=== PATIENT | female | born 1950 | race Caucasian/White ===

== ENCOUNTER → 2020-01-23 15:33 | Outpatient (CLI) | payer MEDICARE, SELFPAY ==
--- NOTE | ~2020-01-23 | CT_ITS ---
EXAMINATION: CT brain wo con DATE: 01/23/2020 15:45 INDICATION: Headache. TECHNIQUE: Computed tomography (CT) of the head was performed without intravenous contrast. The mA wa s adjusted according to patient size. Iterative reconstruction technique was employed. The dose-lengt h product was 599.57 mGy-cm. COMPARISON: Head CT 11/07/2018 FINDINGS: There is no intracranial hemorrhage, acute infarction, or abnormal intracranial mass lesion . The ventricles are normal in size. There are likely changes of ocular lens replacement surgeries. T he paranasal sinuses are clear. The mastoid air cells are normal. IMPRESSION: 1. Normal brain. Reviewed, dictated and finalized at location A. IMPRESSION: 1. Normal brain.
== END ==
PROVIDERS: PCP Family Medicine; Visit Provider Family Medicine
DX: R51.9 Headache, unspecified (principal)
CPT/HCPCS: 70450

== ENCOUNTER 2021-02-25 08:52 | Outpatient (CLI) | payer MEDICARE, SELFPAY ==
--- NOTE | ~2021-02-25 | DEXA_ITS ---
Bone Density Report Name: Marietta Baum Age: 70 Sex: Female Ethnicity: White Date of : 1950 Indication: postmenopausal; height loss; hysterectomy; rheumatoid arthritis; Referring Provider: Jose G Munroe Study: Bone densitometry was performed. Exam Date: February 25, 2021 Accession number: [id number] Bone Density: Region BMD T-score Z-score Classification AP Spine (L1, L2, L4) 1.058 0.2 2.4 Normal Femoral Neck (Left) 0.656 -1.7 0.2 Osteopenia Total Hip (Left) 0.834 -0.9 0.7 Normal Total Hip Bilateral Avg 0.837 -0.8 0.8 Normal Femoral Neck (Right) 0.716 -1.2 0.7 Osteopenia Total Hip (Right) 0.839 -0.8 0.8 Normal World Health Organization criteria for BMD impression classify patients as: Normal (T-score at or above -1.0), Osteopenia (T-score between -1.0 and -2.5), or Osteoporosis (T-score at or below -2.5). 10-year Fracture Risk(1): Major Osteoporotic Fracture 14% Hip Fracture 2.8% Reported Risk Factors: [place] (), Neck BMD=0.656, BMI=28.9, rheumatoid arthritis (1) FRAX(R) Version 3.08. Fracture probability calculated for an untreated patient. Fracture probability may be lower if the patient has received treatment. Previous Exams: Region Exam Age BMD T-score BMD Change BMD Change Date g/cm2 vs Baseline vs Previous AP Spine(L1, L2, L4) 02/25/2021 70 1.058 0.2 -0.073(-6.5%)# 0.039(3.8%)* 10/22/2017 67 1.018 -0.1 -0.112(-9.9%)# 0.005(0.5%) 06/22/2015 65 1.013 -0.2 -0.118(-10.4%) -0.044(-4.2%)# 05/16/2010 59 1.057 0.2 -0.073(-6.5%)* -0.046(-4.2%)* 09/23/2007 57 1.103 0.6 -0.027(-2.4%)* -0.027(-2.4%)* 07/21/2003 53 1.131 0.9 Total Hip(Left) 02/25/2021 70 0.834 -0.9 -0.229(-21.5%) -0.115(-12.2%) 10/22/2017 67 0.949 0.1 -0.114(-10.7%) -0.003(-0.3%) 06/22/2015 65 0.952 0.1 -0.111(-10.4%) -0.077(-7.4%)# 05/16/2010 59 1.028 0.7 -0.034(-3.2%)* -0.009(-0.9%) 09/23/2007 57 1.037 0.8 -0.025(-2.4%) -0.025(-2.4%) 07/21/2003 53 1.063 1.0 Total Hip(Right) 02/25/2021 70 0.839 -0.8 -0.255(-23.3%) -0.116(-12.1%) 10/22/2017 67 0.955 0.1 -0.139(-12.7%) -0.027(-2.7%) 06/22/2015 65 0.982 0.3 -0.112(-10.3%) -0.020(-2.0%)# 05/16/2010 59 1.002 0.5 -0.093(-8.5%)* -0.027(-2.6%) 09/23/2007 57 1.029 0.7 -0.066(-6.0%)* -0.066(-6.0%)* 07/21/2003 53 1.094 1.2 *Denotes significance at 95% confidence level, LSC for AP Spine = 0.022 g/cm2, LSC for Total Hip = 0.027 g/cm2 Clinical Information Provided by Patient:
--- NOTE | ~2021-02-25 | MM_ITS ---
EXAMINATION: MM screening [facility] BI w minerva HISTORY: Screening TECHNIQUE: Craniocaudal and mediolateral oblique 3-D tomosynthesis images were obtained and synthetic 2-D images were generated. CAD analysis was submitted and interpreted. COMPARISON: Comparison to multiple prior studies sequentially, with oldest reviewed study dated 10/15. BREAST PARENCHYMAL COMPOSITION: There are scattered areas of fibroglandular density. FINDINGS: There is no evidence of suspicious mass, calcification, or architectural distortion to sugg est malignancy in either breast. There has been no suspicious interval change. IMPRESSION: 1. No mammographic evidence of malignancy. 2. Recommend routine screening mammography in one year. BI-RADS Category 1: Negative Reviewed, dictated and finalized at location A.
== END 2021-02-25 08:53 | disposition home or self-care (01) ==
PROVIDERS: PCP Family Medicine; Visit Provider Family Medicine
DX: Z12.31 Encounter for screening mammogram for malignant neoplasm of breast (principal); Z78.0 Asymptomatic menopausal state; M85.852 Other specified disorders of bone density and structure, left thigh; M85.851 Other specified disorders of bone density and structure, right thigh
CPT/HCPCS: 77063; 77067; 77080

== ENCOUNTER → 2022-03-07 13:13 | Outpatient (CLI) | payer MEDICARE, SELFPAY ==
--- NOTE | ~2022-03-07 | XR_ITS ---
EXAMINATION: XR_CERV2-3V_CR DATE: 03/07/2022 14:40 INDICATION: Polyarthralgia. Psoriatic arthritis. TECHNIQUE: 3 views of cervical spine were obtained. COMPARISON: None. FINDINGS: There is 19 degrees levoscoliosis of cervicothoracic spine. There is 2 mm anterolisthesis o f C4 on C5. Vertebral body heights are normal. There is severely decreased disc height at C3-C4, mild ly decreased disc height at C4-C5, and severely decreased disc height at C5-C6 and C6-C7. There is mu ltilevel uncovertebral joint osteoarthritis, severe bilaterally at C3-C4, C5-C6, and C6-C7 and on the right at C4-C5. There is multilevel mild to moderate facet joint osteoarthritis. There is mild centr al canal stenosis at C4-C5. No prevertebral soft tissue swelling. IMPRESSION: 1. Severe cervical spondylosis. 2. Cervicothoracic levoscoliosis. Reviewed, dictated and finalized at location A. SE MACHINE OPERATOR HELPER
--- NOTE | ~2022-03-07 | XR_ITS ---
EXAMINATION: XR hand LT 2V DATE: 03/07/2022 14:40 INDICATION: Polyarthralgia. Psoriatic arthritis. TECHNIQUE: 2 views of left hand were obtained. COMPARISON: None. FINDINGS: There is ulnar angulation of second distal phalanx with respect to the middle phalanx. Ther e is ulnar subluxation of third middle phalanx with respect to the proximal phalanx. No fracture. The re is moderate osteoarthritis of triscaphe joint and mild osteoarthritis of first carpometacarpal naida nt. There is osteoarthritis of all of the interphalangeal joints, severe at third and fourth proximal interphalangeal joints and second, third, and fifth distal interphalangeal joints. There is an old h ealed fracture of tuft of fourth distal phalanx. IMPRESSION: 1. Polyarticular osteoarthritis. No specific evidence of inflammatory arthritis. Reviewed, dictated and finalized at location A. ECTION ANALYST IMPRESSION: 1. Polyarticular osteoarthritis. No specific evidence of inflammatory arthritis .
--- NOTE | ~2022-03-07 | XR_ITS ---
EXAMINATION: XR hand RT 2V DATE: 03/07/2022 14:40 INDICATION: Polyarthralgia. Psoriatic arthritis. TECHNIQUE: 2 views of right hand were obtained. COMPARISON: None. FINDINGS: There is ulnar angulation of second distal phalanx with respect to the middle phalanx. Ther e is ulnar subluxation of fifth distal phalanx with respect to the middle phalanx. No fracture. There is mild osteoarthritis of triscaphe joint and moderate osteoarthritis of first carpometacarpal joint . There is mild osteoarthritis of second metacarpophalangeal joint. There is osteoarthritis of all of the interphalangeal joints, severe at first interphalangeal joint, third and fourth proximal interph alangeal joints, and second, third, and fifth distal interphalangeal joints. IMPRESSION: 1. Polyarticular osteoarthritis. No specific evidence of inflammatory arthropathy. Reviewed, dictated and finalized at location A. S OPERATOR PRINTING IMPRESSION: 1. Polyarticular osteoarthritis. No specific evidence of inflammatory arthropat hy.
--- NOTE | ~2022-03-07 | XR_ITS ---
XR chest 2V 03/07/2022 14:40 Indication: Polyarthralgias. Psoriatic arthritis. Procedure: 2 view chest Comparison: 12/03/2013 Findings: Heart size normal. Sequential pacemaker leads in expected position. There is subsegmental a telectasis in the left mid and lower lung. No focal pneumonia, pleural effusion or pneumothorax. No a cute osseous abnormality. Impression: 1: Subsegmental atelectasis left mid and lower lung. Reviewed, dictated and finalized at location A. ATTACHER Impression: 1: Subsegmental atelectasis left mid and lower lung.
--- NOTE | ~2022-03-07 | XR_ITS ---
EXAMINATION: XR foot RT min 3V DATE: 03/07/2022 14:39 INDICATION: Polyarthralgia. Psoriatic arthritis. TECHNIQUE: 4 views of right foot were obtained. COMPARISON: None. FINDINGS: There is mild hallux valgus. No fracture. There is mild osteoarthritis of first and third m etacarpophalangeal joints and some the interphalangeal joints and midfoot joints. There are enthesoph ytes at the posterior and plantar aspects of calcaneal tuberosity. IMPRESSION: 1. Mild polyarticular osteoarthritis. 2. Mild hallux valgus. Reviewed, dictated and finalized at location A. WINDING SUPERVISOR
--- NOTE | ~2022-03-07 | XR_ITS ---
EXAMINATION: XR foot LT min 3V DATE: 03/07/2022 14:40 INDICATION: Polyarthralgia. Psoriatic arthritis. TECHNIQUE: 4 views of left foot were obtained. COMPARISON: None. FINDINGS: There is mild hallux valgus. No fracture. There is mild osteoarthritis of first metatarsoph alangeal joint and some of the interphalangeal joints and midfoot joints. There is an enthesophyte at plantar aspect of calcaneal tuberosity. IMPRESSION: 1. Mild polyarticular osteoarthritis. 2. Mild hallux valgus. Reviewed, dictated and finalized at location A. S HANDLER
== END ==
PROVIDERS: PCP Family Medicine
DX: L40.50 Arthropathic psoriasis, unspecified (principal); Z11.1 Encounter for screening for respiratory tuberculosis; M47.892 Other spondylosis, cervical region; M19.041 Primary osteoarthritis, right hand; M19.042 Primary osteoarthritis, left hand; M19.072 Primary osteoarthritis, left ankle and foot; M20.12 Hallux valgus (acquired), left foot; M19.071 Primary osteoarthritis, right ankle and foot; M20.11 Hallux valgus (acquired), right foot; R91.8 Other nonspecific abnormal finding of lung field
CPT/HCPCS: 71046; 72040; 73120; 73630

== ENCOUNTER 2022-04-19 19:34 | Emergency (ER) | payer MEDICARE, SELFPAY ==
[2022-04-19 19:44] VITALS: BP 132/85; PULSE 93; RESP 16; TEMP 37; O2SAT 98
--- NOTE | 2022-04-19 19:53 | ED.URI ---
HPI - URI/Sore Throat General Chief Complaint: Upper Respiratory Infection Stated Complaint: cough; sore throat Time Seen by Provider: 04/19/22 19:54 Source: patient and RN notes reviewed Mode of arrival: ambulatory Limitations: no limitations History of Present Illness HPI Narrative: 71-year-old female with a history of RA presented for c/o cough and sore throat, onset today. She endorses her tested positive for RSV 3 days ago, and she is concerned she has the same. Currently denies sob, wheezing, chest pain, n/v/d/f/c. Not taking anything for symptoms. She also recently traveled via airplane. MD elicited complaint: cough Related Data Home Medications Medication Instructions Recorded Confirmed apixaban 5 mg tablet (Eliquis) 5 mg PO BID 12/12/19 03/22/22 levothyroxine 75 mcg tablet 75 mcg PO DAILY 12/12/19 03/22/22 methotrexate sodium 2.5 mg tablet 15 mg PO WEEKLY 12/12/19 03/22/22 evolocumab 140 mg/mL subcutaneous 140 mg subcut .TWICE A MONTH 12/29/20 03/22/22 pen injector (Dionne Mcguire) ezetimibe 10 mg tablet 10 mg PO DAILY 04/19/22 04/19/22 hydroxychloroquine 200 mg tablet 200 mg PO DAILY 04/19/22 04/19/22 leflunomide 20 mg tablet 20 mg PO DAILY 04/19/22 04/19/22 rosuvastatin 20 mg tablet 20 mg PO DAILY 04/19/22 04/19/22 Allergies Allergy/AdvReac Type Severity Reaction Status Date / Time adhesive Allergy Unknown Rash Verified 04/19/22 20:03 atorvastatin Allergy Unknown muscle Verified 04/19/22 20:03 cramps latex Allergy Unknown Rash Verified 04/19/22 20:03 Review of Systems Review of Systems: per HPI [facility] Past Medical History Medical History History of pulmonary embolism HLD (hyperlipidemia) Hypothyroidism IFG (impaired fasting glucose) Overweight Overweight Psoriatic arthritis Rheumatoid arthritis Surgical History Surgical History History of delivery History of cholecystectomy History of tonsillectomy Status cardiac pacemaker Family History Family History Father Heart disease Diabetes mellitus Mother Lymphoma Sibling Cerebrovascular accident Heart disease Father Family history of elevated blood lipids, Onset Age: 72 Family history of diabetes mellitus in first degree relative, Onset Age: 72 Family history of coronary artery disease Hypertension, Onset Age: 72 Patient's father is Sibling Cerebrovascular accident Family history of coronary artery disease Hypertension Family history of elevated blood lipids Family history of diabetes mellitus in first degree relative Mother Family history of lymphoma Other Family history of arthritis Family history of osteoporosis Family history of rheumatoid arthritis Social History Social History Social History: Years smoked: 2 Smoking status: Former smoker Tobacco type: cigarettes Second hand tobacco smoke exposure: No Smoking end date: 04/23/89 Alcohol intake: former Substance use: never Substance use type: does not use Gender identity (if verbalized by the patient): Female Sexual Orientation (if Verbalized by the Patient): Straight or Heterosexual Exam Narrative: GENERAL: well-appearing, nontoxic EYES: PERRLA, conjunctivae clear ENT: Mucous membranes moist. TM pearly melendez with dull light reflex bilaterally; no tragal tenderness. Oropharynx normal NECK: Supple. No lymphadenopathy CHEST: Clear to auscultation, breath sounds equal. No wheezing, rhonchi, rales, or stridor. No respiratory distress, speaks in full sentences. HEART: Regular rate and rhythm. No murmur heard. SKIN: Warm, dry, no rash. NEURO: Alert and oriented x3. PSYCH: Normal mood and affect Course Course Emergency Course: Patient is aware of diagno
== END 2022-04-19 20:10 | disposition home or self-care (01) ==
PROVIDERS: Emergency Provider Nurse Practitioner Family; PCP Family Medicine
DX: B34.9 Viral infection, unspecified (principal); Z86.711 Personal history of pulmonary embolism; Z79.01 Long term (current) use of anticoagulants; E78.5 Hyperlipidemia, unspecified; E03.9 Hypothyroidism, unspecified; M06.9 Rheumatoid arthritis, unspecified; Z87.891 Personal history of nicotine dependence
CPT/HCPCS: 87420; 99213; G0463

== ENCOUNTER → 2022-04-27 09:22 | Outpatient (CLI) | payer MEDICARE, SELFPAY ==
--- NOTE | ~2022-04-27 | CT_ITS ---
Noncontrast CT scan of the cervical spine Technique: Multiple contiguous axial [address] images of the cervical spine were obtained and rec onstructed in 2D sagittal and coronal planes on the acquisition scanner. Dose reduction technique was used on this scan by utilizing automated exposure control, adjustment of the mA and/or kV according to patient size. Clinical History: Pain, spondylosis COMPARISON: 11/27/2018 Findings: No fractures or dislocations. There is mild degenerative disc narrowing at C3-C4, C5 and C 6, and C6-C7. There is bilateral uncovertebral joint degenerative change at C3-C4, C4-C5, and severel y at C5-C6 and C6-C7. Scattered mild facet joint degenerative changes are present. Probable mild bila teral neural foraminal narrowing at C5-C6. No prevertebral soft tissue swelling. Impression: No fracture or subluxation of the cervical spine. Degenerative spondylosis, as detailed above. Reviewed, dictated and finalized at [facility]. NDER DIE MACHINE HELPER Impression: No fracture or subluxation of the cervical spine. Degenerative spondylosis, as detailed above.
== END ==
PROVIDERS: PCP Family Medicine; Visit Provider Physician Assistant
DX: M47.892 Other spondylosis, cervical region (principal)
CPT/HCPCS: 72125

== ENCOUNTER 2022-05-31 08:38 | Outpatient (CLI) | payer MEDICARE, SELFPAY ==
--- NOTE | ~2022-05-31 | DEXA_ITS ---
Bone Density Report Name: JASSON MCCONNELL Age: 72 Sex: Female Ethnicity: White Date of : 1950 Indication: postmenopausal; screening for osteoporosis; height loss; hysterectomy; rheumatoid arthritis; Referring Provider: MARILUZ FAIR Study: Bone densitometry was performed. Exam Date: May 31, 2022 Accession number: [id number] Bone Density: Region BMD T-score Z-score Classification AP Spine(L1, L2, L4) 1.021 -0.1 2.1 Normal Femoral Neck (Left) 0.739 -1.0 1.0 Normal Total Hip (Left) 0.856 -0.7 1.0 Normal Femoral Neck (Right) 0.733 -1.0 0.9 Normal Total Hip (Right) 0.867 -0.6 1.1 Normal Total Hip Mean 0.862 -0.7 1.1 Normal World Health Organization criteria for BMD impression classify patients as: Normal (T-score at or above -1.0), Osteopenia (T-score between -1.0 and -2.5), or Osteoporosis (T-score at or below -2.5). 10-year Fracture Risk: FRAX not reported because: All T-scores for Spine Total, Hip Total, Femoral Neck at or above -1.0 Previous Exams: Region Exam Age BMD T-score BMD Change BMD Change Date g/cm2 vs Baseline vs Previous AP Spine (L1-L2,L4) 05/31/2022 72 1.021 -0.1 0.007 (0.7%) -0.037 (-3.5%) 02/25/2021 70 1.058 0.2 0.044 (4.4%)* 0.039 (3.8%)* 10/22/2017 67 1.018 -0.1 0.005 (0.5%) 0.005 (0.5%) 06/22/2015 65 1.013 -0.2 Total Hip(Left) 05/31/2022 72 0.856 -0.7 -0.096 (-10.1% 0.022 (2.6%) 02/25/2021 70 0.834 -0.9 -0.118 (-12.4% -0.115 (-12.2% 10/22/2017 67 0.949 0.1 -0.003 (-0.3%) -0.003 (-0.3%) 06/22/2015 65 0.952 0.1 Total Hip(Right) 05/31/2022 72 0.867 -0.6 -0.115 (-11.7% 0.028 (3.3%)* 02/25/2021 70 0.839 -0.8 -0.143 (-14.5% -0.116 (-12.1% 10/22/2017 67 0.955 0.1 -0.027 (-2.7%) -0.027 (-2.7%) 06/22/2015 65 0.982 0.3 *Denotes significance at 95% confidence level, LSC for AP Spine = 0.022 g/cm2, LSC for Total Hip = 0.027 g/cm2 Clinical Information Provided by Patient: Has rheumatoid arthritis Has used the following medications: Vitamin D Has the following medical conditions: Hysterectomy Patient maximum height was 66 Menopause Age: 38 No regular weight bearing exercise Drinks caffeinated beverages Onset of menses at age 12 Number of children 3 Impression: The patient has normal bone mass. The BMD for the AP Spine (L1-L2,L4) decreased, changing by -3.5% since the last DXA exam. Discussion: BONE DENSITY IS ABOVE THE M
--- NOTE | ~2022-05-31 | MM_ITS ---
EXAMINATION: MM screening [facility] BI w minerva HISTORY: Screening mammogram TECHNIQUE: Craniocaudal and mediolateral oblique 3-D tomosynthesis images were obtained and synthetic 2-D images were generated. CAD analysis was submitted and interpreted. COMPARISON: 02/25/2021, 10/22/2017, bilateral screening mammogram examinations BREAST PARENCHYMAL COMPOSITION: There are scattered areas of fibroglandular density. FINDINGS: Stable occasional bilateral nodular mammographic opacities. Occasional benign scattered steven cifications. There is no evidence of suspicious mass, calcification, or architectural distortion to s uggest malignancy in either breast. There has been no suspicious interval change. IMPRESSION: 1. No mammographic evidence of malignancy. 2. Recommend routine screening mammography in one year. BI-RADS Category 2: Benign finding(s). Reviewed, dictated and finalized at location A. D DONOR RECRUITER SUPERVISOR
== END 2022-05-31 08:39 | disposition home or self-care (01) ==
PROVIDERS: PCP Family Medicine; Visit Provider Nurse Practitioner Family
DX: Z12.31 Encounter for screening mammogram for malignant neoplasm of breast (principal); N95.8 Other specified menopausal and perimenopausal disorders
CPT/HCPCS: 77063; 77067; 77080

== ENCOUNTER → 2023-01-03 11:05 | Outpatient (CLI) | payer MEDICARE, SELFPAY ==
--- NOTE | ~2023-01-03 | XR_ITS ---
Left Hand Technique: PA and lateral views were obtained. Clinical History: Rheumatoid arthritis Findings: No acute fracture or dislocation is seen. There is moderate osteoarthritis of the second, t hird, and fifth DIP joints, and the third and fourth PIP joints. There is mild degenerative change at the remaining interphalangeal joints. There is moderate degenerative change of the STT articulations . No erosive changes are identified. Soft tissues are unremarkable. Impression: Osteoarthritic changes of the interphalangeal joints and STT articulations, as detailed above. No erosive change evident. Reviewed, dictated and finalized at location M. Impression: Osteoarthritic changes of the interphalangeal joints and STT articulations, as detailed above. No erosive change evident.
--- NOTE | ~2023-01-03 | XR_ITS ---
Right Hand Technique: PA and lateral views were obtained. Clinical History: Rheumatoid arthritis Findings: No acute fracture or dislocation is seen. There is moderate to severe osteoarthritis of the second and third DIP joints, fifth DIP joint, and fourth PIP joint. There is mild degenerative rausch e of the remaining interphalangeal joints. There is moderate degenerative change of the STT articulat ions. Soft tissues are unremarkable. Impression: Osteoarthritic change of the interphalangeal joints and STT articulations, as detailed above. No definite erosive change identified. Reviewed, dictated and finalized at location M. Impression: Osteoarthritic change of the interphalangeal joints and STT articulations, as d etailed above. No definite erosive change identified.
== END ==
PROVIDERS: PCP Physician Assistant Medical; Visit Provider Physician Assistant Medical
DX: M06.00 Rheumatoid arthritis without rheumatoid factor, unspecified site (principal); Z79.899 Other long term (current) drug therapy; M19.041 Primary osteoarthritis, right hand; M19.042 Primary osteoarthritis, left hand
CPT/HCPCS: 73120

== ENCOUNTER 2024-08-25 09:47 | Outpatient (CLI) | payer MEDICARE, SELFPAY ==
--- NOTE | ~2024-08-25 | MM_ITS ---
EXAMINATION: MM screening galo BI w minerva HISTORY: Screening TECHNIQUE: Craniocaudal and mediolateral oblique 3-D tomosynthesis images were obtained and synthetic 2-D images were generated. CAD analysis was submitted and interpreted. COMPARISON: Comparison to multiple prior studies sequentially, with oldest reviewed study dated 06/08. BREAST PARENCHYMAL COMPOSITION: Not dense: There are scattered areas of fibroglandular density. FINDINGS: Bilateral benign-appearing masses are unchanged from prior studies. There is no evidence of suspicious mass, calcification, or architectural distortion to suggest malignancy in either breast. There has been no suspicious interval change. IMPRESSION: 1. No mammographic evidence of malignancy. 2. Recommend routine screening mammography in one year. BI-RADS Category 2: Benign finding(s). Reviewed, dictated and finalized at location A.
--- OUTSIDE RECORDS SUMMARY | 2024-08-25 10:31 | XMS_ITS | Encounter Summary ---
Author Organization [facility] Address [address] [place] [address] Care Team Providers Care Rose Grader Name Role Phone Jose G Munreo MD Primary Care Provider [phone] Encounter Details Date Type Department Care Team (Late st Contact Info) Description 10/18/2022 MyChart Message Enc [facility] [address] [place], [place] [address] [facility] [place], [facility] [place] Provider Air Quality Message Social History Tobacco Use Types Packs/Day Years Used Date Smoking Tobacco: Former Cigarettes 0.3 3 1 977 - 1980 Smokeless Tobacco: Never Alcohol Use Standard Drinks/Week Comments Not Currently 0 (1 standard drink = 0.6 oz pur e alcohol) PHQ-2 Answer Date Recorded Patient Health Questionnaire-2 Score 0 07/17/2022 Comments No Sex and Gender Information Value Date Recorded Sex Assigned at Not on file Legal Sex Female 11:19 AM CDT Gender Identity Female 07/18/2021 6:29 AM CDT Sexual Orientation Straight 07/18/2021 6: 29 AM CDT documented as of this encounter Plan of Treatment Not on file documented as of this encounter Visit Diagnoses Not on filedocumented in this encounter Additional Health Concerns Assessment Noted Time PHQ-9 Depression Total Score: 0 07/19/19 22 9:31 AM CDT documented as of this encounter Care Teams Rose Grader Relationship Specialty Start Date End Date Jose G Munroe MD [address] [place] [address] PCP - General FAMILY PRACTICE 04/08/20 documented as of this encounter
--- OUTSIDE RECORDS SUMMARY | 2024-08-25 10:31 | XMS_ITS | Clinical Summary ---
Author Organization [facility] Address [address] [place] [address] Care Team Providers Care Dry Cell Battery Assembler Name Role Phone Jose G Munroe MD Primary Care Provider [phone] Arnaldo Woods MD Unavailable [phone] Itz Loya MD Unavailable [phone] Source Comments [facility],non-owned Affiliates and Associated Physician Practices is amultiple site organization consisting of ambulatory clinics and hospital sitesin [place], [place], [place] and [place]. This disclosure is being madepursuant to the Care Everywhere program and may not contain all information available regarding this patient. Last updated 18.[facility] [employer] Allergies Active Allergy Reactions Criticality Noted Date Comments Adhesive Sensitivity Rash Medium 10/26/2020 Medications * Be aware that medications may not be up to date on this document. Alwaysverify current medications with the patient. evolocumab (REPATHA SURECLICK) 140 MG/ML auto-injector Inject 140 mg subcutaneously 05/17/19 21 Active Flaxseed Oil (LINSEED OIL) Take 1 Dose by mouth once daily Active VASCEPA 1 g capsule Take 2 capsules by mouth 2 times daily 02/20/20 20 Active Tretinoin Microsphere 0.08 % Apply topically to face once at night 10/16/19 21 Active Probiotic Product (PROBIOTIC-10 PO) Active Cholecalciferol (VITAMIN D) 50 MCG (2000 UT) capsule Take 2,000 Units by mouth once daily Active acetaminophen (TYLENOL) 500 MG tablet Take 1 (one) tablet by mouth every 6 hours as needed for Fever or Pain Maximum allowable Acetaminophen amount = 4 Grams (4000 mg) / 24 hours. 0 01/28/20 Active leflunomide (ARAVA) 10 MG tablet Resume as per your rheumatologists instructions 01/28/20 Active famotidine (PEPCID) 20 MG tablet Take 1 (one) tablet by mouth once daily 01/28/20 Active apixaban (ELIQUIS) 2.5 MG tablet Take 1 tablet by mouth 2 times daily 11/25/19 Active Active Problems Problem Noted Date Diagnosed Date Primary osteoarthritis of left knee 10/26/2020 Acquired hypothyroidism 09/16/2020 Overview (10/26/2020): Last Assessment & Plan: Thyroid function tests, including TSH and free T4 were requested Will adjust dose of Levothyroxine accordingly . If there is a need to make changes, will recheck levels in 2-3 months. Instructions to patient on taking medication properly : in the morning, on an empty stomach , 1 h part from food and/or other meds. Occipital neuralgia of right side 06/22/2020 Hyperglycemia 02/17/2020 KATHARINA on CPAP 01/19/2020 VTE (venous thromboembolism) 07/29/2019 DDD (degenerative disc disease), cervical 2018 Overview (10/26/2020): Last Assessment & Plan: See comments above Last Assessment & Plan: See comments above Hyperparathyroidism, primary 10/08/2018 Overview (10/26/2020): Last Assessment & Plan: Normal bone density Normal serum calcium Continue to monitor serum calcium Last Assessment & Plan: Monitor Ca and vit D levels. Dry eye syndrome of both eyes 11/19/2017 Overview (10/26/2020): Last Assessment & Plan: Recommend increase lubricant eye drops to 4 times/day; consider preservative- free drops, especially if using drops more than that. Add hot compresses with lid scrubs to improve quality of tears. Last Assessment & Plan: Recommend increase lubricant eye drops to 4 times/day; consider preservative- free drops, especially if using drops more than that. Add hot compresses with lid scrubs to improve quality of tears. Normally functioning cardiac pacemaker present 0 07/10/2017 Overview (10/26/2020): Last Assessment & Plan: NO MRI exams. Last Assessment & Plan: NO MRI exams. Immunizations Immunization Administration Dates Next Due Cov[employer]ism[employer] primary monoval ent 12+ yr 0.3mL Purple cap 07/13/2020,06/17/2020 Social History Tobacco Use Types Packs/Day Years Used Date Smoking Tobacco: Former Cigarettes Q uit: 1979 Smokeless Tobacco: Never Alcohol Use Standard Drinks/Week Comments Never 0 (1 standard drink = 0.6 oz pur e alcohol) Comments Unknown Sex and Gender Information Value Date Recorded Sex Assigned at Not on file Legal Sex Female 10:44 AM CDT Gender Identity Not on file Sexual Orientation Not on file Last Filed Vital Signs Vital Sign Reading Time Taken Comments Blood Pressure 137/74 01/27/2021 11:18 AM CDT Pulse 64 01/27/2021 11:18 AM CDT Temperature 37 C (98.6 F) 01/27/2021 11:18 AM CDT Respiratory Rate 18 01/27/2021 11:18 AM CDT Oxygen Saturation 94% 01/27/2021 11:18 AM CDT Inhaled Oxygen Concentration - - Weight 79.4 kg (175 lb) 01/26/2021 2:17 PM CDT Height 162.6 cm (5' 4 ) 01/26/2021 2:17 PM CDT Body Mass Index 30.04 01/26/2021 2:17 PM CDT Plan of Treatment Health Maintenance Due Date Last Done Comments BONE DENSITY TESTING 1950 COLON MONITORING 1949 COLONOSCOPY - COLON CA SCREENING 1949 CT COLONOGRAPHY - COLON CA SCREENING 1949 FIT - COLON CA SCREENING 1949 FLEX SIG - COLON CA SCREENING 1949 LIPID TESTING 1950 MAMMOGRAM 1950 HEPATITIS C SCREENING 05/18/1967 DTAP/TDAP/TD VACCINES (1 - Tdap) 1968 PNEUMOCOCCAL VACCINE 50+ (1 of 1 - PCV) 1999 ZOSTER VACCINE (1 of 2) 1999 COVID-19 VACCINE (3 - season) 2023 07/13/2020, 06/17/2020 COLOGUARD (AGES 45-75) - COLON CA SCREENING 01/12/2024 01/11/2021 Colorectal Cancer Screening 01/12/2024 DEPRESSION SCREENING 04/23/2024 Respiratory Syncytial Virus (RSV) Vaccine Pt: or over 60 yrs (1 - 1-dose 75+ series) 2024 INFLUENZA VACCINE (Season Ended) 2024 12/29/2019, 01/14/2019, 01/08/2018, Additional history exists HEPATITIS B VACCINE Aged Out No longe r eligible based on patient's age to complete this topic HIB VACCINE Aged Out No longer eligi ble based on patient's age to complete this topic HPV VACCINE Aged Out No longer eligi ble based on patient's age to complete this topic MENINGOCOCCAL (Group B) VACCINE SHARED DECISION-MAKING Aged Out No longer eligible based on patient's age to complete this topic MENINGOCOCCAL GROUPS A/C/Y/W VACCINE Aged Out No longer eligible based on patient's age to complete this topic Medical Devices Implanted Type Area Director Of Strategic Marketing Device Identifier Shelf Expiration Date Model / Serial / Lot Cmnt Bone Djo Srg Cblt 40gm Hvisc Strl Implanted:Qty: 1 on 01/26/2021 by Arnaldo Woods MD at [facility] Left: Knee [employer] 05/25/2022 [id number] / / [id number] Cmpnt Ptlr 28mm 1 Pg Wire Ascnt Arcm Kn Implanted:Qty: 1 on 01/26/2021 by Arnaldo Woods MD at [facility] Left: Knee [employer] 10/04/2025 [id number] / / [id number] Tray Tib 71mm Kn Cocr I Beam Implanted:Qty: 1 on 01/26/2021 by Arnaldo Woods MD at [facility] Left: Knee [employer] 04/17/2030 [id number] / / [id number] Cmpnt Fem Kn Lt Cr Cmnt Prm Vngrd Intlk Implanted:Qty: 1 on 01/26/2021 by Arnaldo Woods MD at [facility] Left: Knee [employer] 09/01/2030 [id number] / / [id number] Brng [id number] Vngrd Arcm Kn Ant Stab Implanted:Qty: 1 on 01/26/2021 by Arnaldo Woods MD at [facility] Left: Knee [employer] 05/21/2025 [id number] / / [id number] Insurance HUMAN Advance Directives Documents on File Type Date Recorded Patient Blueprint Tracer Expl anation Adv Directive/Living Will/POA 12/30/2020 4:42 PM * Full Code (Latest Code Status on File) Date Activated Date Inactivated Comments 01/26/2021 2:17 PM 01/27/2021 1:41 PM Care Teams Dry Cell Battery Assembler Relationship Specialty Start Date End Date Jose G Munroe MD [address] [place] [address] PCP - General Family Medicine 12/07/15 [place] [address] [place] [address] Surgeon Orthopedic Surgery 10/26/20 Itz Loya MD [address] [place] [id number] 12/31/20
--- OUTSIDE RECORDS SUMMARY | 2024-08-25 10:31 | XMS_ITS | Clinical Summary ---
Author Organization [facility] Address [address] [place] [address] Care Team Providers Care Road Patcher Name Role Phone Jose G Munroe MD Primary Care Provider [phone] Allergies Active Allergy Reactions Criticality Noted Date Comments Tape Rash Medium 10/08/2018 Medications Biotin 10 MG Cap Act aileen vitamin D3 (CHOLECALCIFEROL ) 125 mcg Tab take one tab daily 5 Active diclofenac sodium 1 % gel Apply 2 g topically 3 (three) times daily. 0 Active Flaxseed Oil (LINSEED OIL) Oil Active levothyroxine 75 MCG tablet Take 1 tablet by mouth once daily 7 Active rosuvastatin 5 MG tablet TAKE 1 TABLET EVERY DAY 0 Active sulfaSALAzine EC 500 MG tablet Take 2 tabs by mouth 2 times daily 7 Active traZODone 50 MG tablet Take trazodone 50 mg 1 tablet every night at bedtime. 7 Active triamcinolone 0.1 % cream Apply topically 2 (two) times daily. 9 Active triamcinolone acetonide 40 MG/ML ophthalmic injection Inject 100 mg into the muscle. 7 Active budesonide-formo terol (SYMBICORT) 160-4.5 MCG/ACT inhalerIndicatio ns:Mild intermittent reactive airway disease without complication (HHS/HCC) Inhale 2 puffs into the lungs 2 (two) times daily. 1 Inhaler 5 0 Active brimonidine 0.2 % ophthalmic solution 1 drop 2 (two) times daily. 0 Active ofloxacin 0.3 % ophthalmic solution INSTILL ONE DROP INTO THE RIGHT EYE FOUR TIMES DAILY. TO START THE DAY PRIOR TO SURGERY 0 Active prednisoLONE acetate 1 % ophthalmic suspension INSTILL ONE DROP INTO THE RIGHT EYE FOUR TIMES DAILY. TO START AFTER SURGERY 0 Active apixaban 2.5 MG tabletIndication s:History of pulmonary embolism Take 1 tablet (2.5 mg total) by mouth 2 (two) times daily. 60 tablet 3 0 Active evolocumab (REPATHA SURECLICK) 140 MG/ML injection (PEN) Inject 140 mg into the skin. 1 Active apixaban 2.5 MG tabletIndication s:History of pulmonary embolism Take 1 tablet (2.5 mg total) by mouth 2 (two) times daily. 60 tablet 2 1 Active ELIQUIS 2.5 MG tabletIndication s:History of pulmonary embolism TAKE 1 TABLET TWICE DAILY 180 tablet 2 1 Active ezetimibe (ZETIA) 10 MG tablet Take 1 tablet (10 mg total) by mouth daily. 2 Active methotrexate (TREXALL) 2.5 MG tablet methotrexate sodium 2.5 mg tablet Active ELIQUIS 2.5 MG tabletIndication s:VTE (venous thromboembolism) TAKE 1 TABLET TWICE DAILY 180 tablet 1 3 Active Active Problems Problem Noted Date Diagnosed Date KATHARINA on CPAP 01/19/2020 Physical deconditioning 01/19/2020 Mild intermittent reactive a irway disease without complication ([facility]) 09/19/2019 Environmental and seasonal allergies 09/19/2019 VTE (venous thromboembolism) 07/29/2019 On methotrexate therapy 07/29/2019 Cigarette nicotine dependence in remission 07/28 DDD (degenerative disc disease), cervical 2018 Overview (07/29/2019): Last Assessment & Plan: See comments above Ulnar neuropathy of both upper extremities 01/14 Overview (07/29/2019): Last Assessment & Plan: NCV reviewed; mild bilateral ulnar neuropathy. Orthopedic consultation Later today (Dr. La) noted, Hyperparathyroidism, primary ([facility]) 9 Overview (07/29/2019): Last Assessment & Plan: Normal bone density Normal serum calcium Continue to monitor serum calcium Hypothyroidism due to acquired atrophy of thyroi d 10/08/2018 Overview (07/29/2019): Last Assessment & Plan: Continue levothyroxine at current dose of 75 mcg daily Stress due to family tension 10/07/2018 Overview (07/29/2019): Last Assessment & Plan: Discussed situational stress and benefits of counseling. Referral provided. Hypercalcemia 04/02/2018 Overview (07/29/2019): Last Assessment & Plan: Very midly With abnormally normal ( high normal PTH ), indicative of primary hyperparathyroidism As long as Ca stay under 11 and bone density is normal, there is no indication for any intervention Will check 24 h urine calcium. Trigger middle finger of right hand 03/06/2018 Overview (07/29/2019): Last Assessment & Plan: Trigger finger injection completed (sterile technique). May apply ice compresses x 24 hours followed by warm compresses as needed. May return for injection L 3rd finger pend clinical course. ABMD (anterior basement membrane dystrophy) 10/23 Overview (07/29/2019): Last Assessment & Plan: AFTs PRN - Warned patient that this could worsen after cataract sx. Combined forms of age-related cataract of both e yes 11/19/2017 Overview (07/29/2019): Last Assessment & Plan: Patient complains of significant symptoms and problems with activities of daily living due to visually significant disease. R/B/A of cataract surgery discussed with the patient including bleeding, infection, chronic inflammation, need for glasses and/or second surgery, loss of vision, loss of eye, and even very rarely, . Patient's questions were answered and wants to proceed with cataract extraction with intraocular lens implant. Pamphlet given and plans were made to schedule this elective surgery. Rec phaco/IOl left eye (OS) first. Note ABMD, Aim plano- standard vs. Bifocal. Info given. Will discuss after testing. Dry eye syndrome of both eyes 11/19/2017 Overview (07/29/2019): Last Assessment & Plan: Recommend increase lubricant eye drops to 4 times/day; consider preservative- free drops, especially if using drops more than that. Add hot compresses with lid scrubs to improve quality of tears. Normally functioning cardiac pacemaker present 0 07/10/2017 Overview (07/29/2019): Last Assessment & Plan: NO MRI exams. Postmenopausal bone loss 03/27/2017 Overview (07/29/2019): Dexa Axial Skeleton Bone Density 1 or 2 Site Status: Final result Study Result EXAM: DEXA Bone Density Axial HISTORY: hypercalcemia. FINDINGS: The mean bone mineral content of the lumbar spine is 1.054 g/cm2. The T-score is 0.1 consistent with normal bone mineral density. The mean bone mineral content of the wrist-forearm is 0.528 g/cm2. The total T-score is -0.9. This is consistent with normal bone mineral density. IMPRESSION: WITHIN THE RANGE OF NORMAL. COMMENT: W.H.O. defines the T-score of between -1 and -2.5 as osteopenia, the level at which there may be an increased risk of developing osteoporosis and fractures in the future. Osteoporosis is defined as T-score lower than -2.5 (significantly increased risk of fracture due to osteoporosis). T-score is a comparison to peak bone mineral density of young adult reference population. Z-score is a comparison to bone mineral density of sex and age group population. Electronically signed by: Richard Philippe M.D Last Assessment & Plan: Dexa Axial Skeleton Bone Density 1 or 2 Site Status: Final result Study Result EXAM: DEXA Bone Density Axial HISTORY: hypercalcemia. FINDINGS: The mean bone mineral content of the lumbar spine is 1.054 g/cm2. The T-score is 0.1 consistent with normal bone mineral density. The mean bone mineral content of the wrist-forearm is 0.528 g/cm2. The total T-score is -0.9. This is consistent with normal bone mineral density. IMPRESSION: WITHIN THE RANGE OF NORMAL. COMMENT: W.H.O. defines the T-score of between -1 and -2.5 as osteopenia, the level at which there may be an increased risk of developing osteoporosis and fractures in the future. Osteoporosis is defined as T-score lower than -2.5 (significantly increased risk of fracture due to osteoporosis). T-score is a comparison to peak bone mineral density of young adult reference population. Z-score is a comparison to bone mineral density of sex and age group population. Electronically signed by: Richard Philippe M.D She has been off calcium supplements due to previous elevated calcium. Lab Results Component Value Date CALCIUM 10.4 (H) 10/07/2018 Update lab as per orders. You MAY resume calcium in diet. Vitamin D deficiency 03/27/2017 Overview (07/29/2019): Last Assessment & Plan: Update lab as per orders. Encounter for long-term (cur rent) use of high-risk medication 12/18/2016 Overview (07/29/2019): Last Assessment & Plan: Patient on immunosuppressive medications requiring periodic lab monitoring for drug safety. Update lab as per orders written. Primary osteoarthritis involving multiple joints 12/18/2016 Overview (07/29/2019): Last Assessment & Plan: Continue symptom management. She is contemplating stem-cell infusions for her hand OA. Reviewed with patient explaining again the paucity of controlled studies documenting benefits of same and the current [employer] position. Persistent disorder of initiating or maintaining sleep 08/30/2016 Overview (07/29/2019): Persistent disorder of initiating or maintaining sleep Last Assessment & Plan: She will continue with a set sleep-wake pattern going to bed at 10:00 p.m. With final awakening at 6:00 a.m.. She will increase her trazodone to 50 mg at bedtime. Overweight with body mass index (BMI) 25.0-29.9 08/30/2016 Overview (07/29/2019): Adult BMI 29.0-29.9 kg/sq m Last Assessment & Plan: BMI satisfactory. A healthy diet and routine exercise regimen are clifford to weight management. Psoriatic arthritis ([facility]) 08/30/2016 Overview (07/29/2019): Last Assessment & Plan: Psoriatic arthritis clinically stable on current med regimen. No med side effects reported. Continue same. Update lab as per orders. Clinically stable on present med regimen. Continue same. Mobitz type II atrioventricular block 12/22/2014 Nocturnal hypoxemia 09/23/2014 Overview (07/29/2019): Nocturnal hypoxemia Last Assessment & Plan: She will wear O2 at 2 L nightly for her nocturnal hypoxemia. Fatigue 09/15/2014 Overview (07/29/2019): Fatigue History of pulmonary embolism 09/15/2014 Overview (07/29/2019): Pulmonary embolism History of pulmonary embolus (PE) Last Assessment & Plan: Noted. Short sleeper syndrome 09/15/2014 Overview (07/29/2019): Short sleeper Last Assessment & Plan: She will continue to set a goal for 8-9 hours of sleep nightly. Snoring 09/15/2014 Overview (07/29/2019): Snoring Impaired glucose tolerance 09/06/2013 Overview (07/29/2019): Prediabetes Mixed hyperlipidemia 09/06/2013 Overview (07/29/2019): Hypercholesterolemia Last Assessment & Plan: Low chol low fat diet Diet and exercise Recheck fasting lipids Restart statin as indicated Multinodular goiter 09/06/2013 Overview (07/29/2019): Multinodular goiter Senile nuclear cataract 05/21/2001 Ocular hypertension 04/24/2000 Infection due to yeast 11/22/1999 Ganglion of joint 05/24/1999 Overview (07/29/2019): right wrist ganglion Dysfunctional uterine bleeding 01/07/1998 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 10/12/1997 Immunizations Immunization Administration Dates Next Due Fluzone High Dose - >Age 65 (Prefilled Syringe) 03/03/2021,01/08/2018 Influenza (Generic) 12/29/2019,01/01/2014 Influenza Adult (Generic) 12/29/2019,,01/21/2016,2013 PFIZER COVID-19 (ORIGINAL FORMULATION, PURPLE CAP) mRNA, LNP-S, PF, 30 MCG/0.3 ML DOSE 12/17/2020,07/13/2020,06/17/2020 Pneumococcal (Pneumovax 23) 12/29/2019 Pneumococcal (Prevnar 13) 01/23/2019,01/21/2016 Shingrix 11/07/2017,08/16/2017,08/15/2017 Tdap (Boostrix) 03/22/2020 Tdap (Generic) 03/22/2020 Social History Tobacco Use Types Packs/Day Years Used Date Smoking Tobacco: Former Cigarettes 0.3 3 1 977 - 1980 Smokeless Tobacco: Never Tobacco Cessation:Counseling Given: Yes Alcohol Use Standard Drinks/Week Comments Not Currently 0 (1 standard drink = 0.6 oz pur e alcohol) PHQ-2 Answer Date Recorded Patient Health Questionnaire-2 Score 0 07/17/2022 Comments No Sex and Gender Information Value Date Recorded Sex Assigned at Not on file Legal Sex Female 11:19 AM CDT Gender Identity Female 07/18/2021 6:29 AM CDT Sexual Orientation Straight 07/18/2021 6: 29 AM CDT Last Filed Vital Signs Vital Sign Reading Time Taken Comments Blood Pressure 144/87 07/17/2022 9:20 AM CDT Pulse 84 07/17/2022 9:20 AM CDT Temperature 36.6 C (97.9 F) 07/17/2022 9:20 AM CDT Respiratory Rate 16 07/17/2022 9:20 AM CDT Oxygen Saturation 93% 07/17/2022 9:20 AM CDT RA Inhaled Oxygen Concentration - - Weight 81.7 kg (180 lb 3.2 oz) 07/17/2022 9:20 A M CDT Height 165.1 cm (5' 5 ) 07/17/2022 9:20 AM CDT Body Mass Index 29.99 07/17/2022 9:20 AM CDT Plan of Treatment Health Maintenance Due Date Last Done Comments Colorectal Cancer Screening Colonoscopy (10 Years) 1950 Hepatitis C 1967 Annual Medicare Wellness Visit 2014 Dexa Scan (General) 2014 COVID-19 Vaccine (4 - 2023-2 5 season) 2023 12/17/2020, 07/13/2020, 06/17/2020 PHQ-2 (Physician [place]) 04/23/2024 RSV Immunization or 60+ Years (1 - 1-dose 75+ series) 2024 DTaP, Tdap and Td Vaccines ( 3 - Td or Tdap) 03/22/2030 03/22/2020, 03/22/2020 Zoster Vaccines Completed 11/07/2017, 08/16/2017, 08/15/2017 Pneumococcal Vaccine: 50+ Years Completed 12/29/2019, 01/23/2019, 01/21/2016 Meningococcal B Vaccine Aged Out No l onger eligible based on patient's age to complete this topic Meningococcal Vaccine Aged Out No willem rudolph eligible based on patient's age to complete this topic RSV Immunizations Under 20 Months Aged Out No longer eligible b ased on patient's age to complete this topic Insurance [employer] Care Teams Road Patcher Relationship Specialty Start Date End Date Jose G Munroe MD [address] [place] [address] PCP - General FAMILY PRACTICE 04/08/20
--- OUTSIDE RECORDS SUMMARY | 2024-08-25 10:31 | XMS_ITS | Encounter Summary ---
Author Organization [facility] Address [address] [place] [address] Phone Care Team Providers Care Car Deliverer Name Role Phone Radha Torres LMT Unavailable Unavailable Radha Morales PT Unavailable Jose G Munroe MD Primary Care Provider Logan Arenas MD Unavailable [phone] Encounter Details Date Type Department Care Team (Latest Contact Info) Description 04/04/2023 Orders Only [facility]/WRIST Scanning, Provider Social History Tobacco Use Types Packs/Day Years Used Date Smoking Tobacco: Former Cigarettes 0.1 1 1990 Smokeless Tobacco: Never Alcohol Use Standard Drinks/Week Comments Not Currently 0 (1 standard drink = 0.6 oz pur e alcohol) AUDIT-C Answer Date Recorded Q1: How often do you have a drink containing alc ohol? Monthly or less 05/12/2022 Q2: How many drinks containi ng alcohol do you have on a typical day when you are drinking? 1 or 2 05/12/2022 Q3: How often do you have si x or more drinks on one occasion? Never 05/12/2022 PHQ-2 Answer Date Recorded PHQ-2 Total Score (If total score is 3 or more points, staff should administer the PHQ-9) 0 09/15/2021 Comments No Sex and Gender Information Value Date Recorded Sex Assigned at Female 06/30/2018 8:30 AM CDT Legal Sex Female 1:54 AM SHOPPER'S AIDE Gender Identity Female 07/09/2018 7:53 AM CDT Sexual Orientation Straight 06/30/2018 8: 30 AM CDT Occupation Industry Job Start Date Job End Date Retired Not on file Not on file Not on file documented as of this encounter Plan of Treatment Not on file documented as of this encounter Procedures Procedure Name Priority Date/Time Associated Diagnosis Comments SCAN - RADIOLOGY/IMAGING 04/04/2023 documented in this encounter Results * SCAN - RADIOLOGY/IMAGING (04/04/2023) Anatomical Region Laterality Modality Other us Provider Scanning Final Result documented in this encounter Visit Diagnoses Not on filedocumented in this encounter Care Teams Car Deliverer Relationship Specialty Start Date End Date Jose G Munroe MD [address] [place] [address] PCP - General Family Medicine 05/25/20 Radha Torres, LMT Massage Therapy 02/19/19 [place] [address] [place] [address] Physical Therapist Physical Therapy 03/27/19 Logan Arenas MD [address] [place] [address] Consulting Physician Rheumatology 01/30/22 documented as of this encounter
--- OUTSIDE RECORDS SUMMARY | 2024-08-25 10:31 | XMS_ITS | Encounter Summary ---
Author Organization [facility] Address [address] [place] [address] Phone Care Team Providers Care Button Attaching Machine Operator Name Role Phone Radha Torres LMT Unavailable Unavailable Radha Morales PT Unavailable [phone] Jose G Munroe MD Primary Care Provider Logan Arenas MD Unavailable Encounter Details Date Type Department Care Team (Late st Contact Info) Description 07/30/2024 Results Follow-Up [facility] [address] [place] [phone] Micheline Russell PA [address] [place] [address] Social History Tobacco Use Types Packs/Day Years Used Date Smoking Tobacco: Former Cigarettes 0.1 1 1 1990 Smokeless Tobacco: Never Alcohol Use Standard Drinks/Week Comments Not Currently 0 (1 standard drink = 0.6 oz pur e alcohol) AUDIT-C Answer Date Recorded Q1: How often do you have a drink containing alcohol? Never 02/27/2024 Q2: How many drinks containi ng alcohol do you have on a typical day when you are drinking? Patient does not drink Q3: How often do you have si x or more drinks on one occasion? 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 Gender Identity Female 07/09/2018 7:53 AM CDT Sexual Orientation Straight 06/30/2018 8: 30 AM CDT Occupation Industry Job Start Date Job End Date Retired Not on file Not on file Not on file documented as of this encounter Plan of Treatment Not on file documented as of this encounter Visit Diagnoses Not on filedocumented in this encounter Care Teams Button Attaching Machine Operator Relationship Specialty Start Date End Date Jose G Munroe MD [address] [place] [address] PCP - General Family Medicine 05/25/20 Radha Torres, LMT Massage Therapy 02/19/19 [place] [address] [place], [place] [phone] Physical Therapist Physical Therapy 03/27/19 Logan Arenas MD [address] [place] [address] Consulting Physician Rheumatology 01/30/22 documented as of this encounter
--- OUTSIDE RECORDS SUMMARY | 2024-08-25 10:31 | XMS_ITS | Clinical Summary ---
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 Implants in good position. Vision stable Assessment & Plan (05/11/2021 2:10 PM IMPORT/EXPORT ANALYST): 12/15/2019- EXTRACTION CATARACT - PHACOEMULSIFICATION AND LENS IMPLANT with TORIC IOL - left eye - Left 01/15/2020- EXTRACTION CATARACT - PHACOEMULSIFICATION AND LENS IMPLANT - right eye - Right aim plano Implants in good position. Vision stable Assessment & Plan (01/28/2020 8:47 AM CDT): Status-post EXTRACTION CATARACT - PHACOEMULSIFICATION AND LENS IMPLANT - right eye - Right 01/15/2020 Best corrected vision is much improved and the patient is pleased with results. The eye is well-healed with no evidence of infection. Plan discontinue ocuflox and taper prednisione TID x 1 week, BID x 1 week , then (QD) x 1week, then discontinue . Call if any inflammation increases or other symptoms worsen or occur. Glasses prescription was offered/given for use as needed. The patient was instructed to contact us if any new concerns occur with this eye. h/o of ocular hypertension in the past. Now intraocular pressure (IOP) ok. FHx of primary open angle glaucoma (POAG). Ok to stop brimonidine now and monitor. Assessment & Plan (01/16/2020 9:43 AM CDT): Post op day 1s/p EXTRACTION CATARACT - PHACOEMULSIFICATION AND LENS IMPLANT - right eye - Right 01/15/2020 No complaints; Doing well Use ofloxacin and prednisolone to operative eye QID Eye shield at bedtime, glasses or shield during the day PO instructions given RTC 1-2 weeks, earlier if any complaints or concerns intraocular pressure (IOP) slightly high. Will add brimonidine bid right eye (OD). Assessment & Plan (12/31/2019 11:03 AM CDT): Status-post EXTRACTION CATARACT - PHACOEMULSIFICATION AND LENS IMPLANT with TORIC IOL - left eye - Left 12/15/2019 Best corrected vision is much improved and the patient is pleased with results. The eye is well-healed with no evidence of infection. Plan discontinue ocuflox and taper prednisione TID x 1 week, BID x 1 week , then (QD) x 1week, then discontinue . Call if any inflammation increases or other symptoms worsen or occur. Glasses prescription was offered/given for use as needed. The patient was instructed to contact us if any new concerns occur with this eye. Assessment & Plan (12/16/2019 9:55 AM CDT): Post op day 1s/p EXTRACTION CATARACT - PHACOEMULSIFICATION AND LENS IMPLANT with TORIC IOL - left eye - Left 12/15/2019 No complaints; Doing well Use ofloxacin and prednisolone to operative eye QID Eye shield at bedtime, glasses or shield during the day PO instructions given RTC 1-2 weeks, earlier if any complaints or concerns Advice given about 2019 novel coronavirus by tel ephone 09/25/2019 Assessment & Plan (09/25/2019 2:37 PM CDT): The full impact of autoimmune diseases and immunomodulatory medications on susceptibility and complications of coronavirus disease is not yet studied. Because we have paper novelty maker with this new virus we do not currently have absolute answers. Currently we are not recommending that patients stop their medications during this period of uncertainty. We do not want to risk letting your disease flare. The usual CDC precautions for minimizing coronavirus risk are appropriate. Frequently wash your hands with soap and water for at least 20 seconds. When soap and running water are unavailable, use an alcohol-based hand rub with at least 60% alcohol. Always wash hands that are visibly soiled. Avoid touching your eyes, nose, or mouth with unwashed hands. Avoid close contact with people who are sick and maintain social distancing. The CDC has recommended that ALL persons wear a fabric mask when out in public. Obviously this is a fast-moving issue and the CDC is providing regular updates as the course and extent of the epidemic is monitored. You may keep up to date at the CDC website: www.coronavirus.gov You may also find more information relevant to your questions at the [employer] webpage: arthritis.org. Click on the Coronavirus banner. It is important that you continue to adhere to the [id number] orders for the time being, especially in view of your potentially immunocompromised status. Feel free to reach out to us if you have additional questions after you review this information. You may review the current [employer] Covid-19 clinical guidance for Patients with Rheumatic Diseases if you copy and paste the link below into your web browser: [email or web address] Of course, methotrexate should be placed on hold in the event you were to become ill. Environmental and seasonal allergies 09/19/2019 Cigarette nicotine dependence in remission 07/28 High risk medication use 07/29/2019 Assessment & Plan (04/29/2024 11:09 AM IMPORT/EXPORT ANALYST): HCQ x ~10 years Last eGFR 2022 Mac OCT today s EZ/OS changes OU 10-2 today full OU Current dose 400mg/day PO; <5mg/kg dosage OK to continue HCQ RTC 6 months with testing given treatment Patient is switching mediations, may be going off HCQ; if no longer taking then yearly visits are reasonable RTC 6 months with 10-2 / DFE / optos ? VTE (venous thromboembolism) 07/29/2019 Osteoarthritis of cervical spine 01/14/2019 Assessment & Plan (03/21/2022 12:50 PM IMPORT/EXPORT ANALYST): Recent cspine with moderate OA changes and severe disc height loss as above. Patient reports up to 2 of height loss with normal 2019 Dexa Scan. Discussed follow up with orthopedist/neurosurgeon due to OA changes and continued pain. Will provide referral. Assessment & Plan (01/14/2019 11:57 AM CDT): See comments above Ulnar neuropathy of both upper extremities 01/14 Assessment & Plan (01/14/2019 11:58 AM CDT): NCV reviewed; mild bilateral ulnar neuropathy. Orthopedic consultation Later today (Dr. La) noted, Hyperparathyroidism, primary 10/08/2018 Assessment & Plan (02/27/2024 4:50 PM IMPORT/EXPORT ANALYST): Pathophysiology of the condition was discussed with the patient Will update serum calcium, PTH and 25 hydroxy vitamin-D level Also 24 hour urine for calcium requested Depending on results, might consider parathyroid scan and referral to surgery The patient voices understanding Assessment & Plan (11/23/2022 4:17 PM CDT): Continue monitoring serum calcium Will request a report of a bone density done within the last year Assessment & Plan (09/15/2021 1:39 PM CDT): Check PTH< serum Ca Assessment & Plan (02/17/2020 11:11 AM CDT): Monitor Ca and vit D levels. Assessment & Plan (08/26/2019 12:24 PM CDT): Check pth, serum ca Continue monitoring Assessment & Plan (02/18/2019 4:33 PM CDT): Normal bone density Normal serum calcium Continue to monitor serum calcium Assessment & Plan (01/14/2019 11:35 AM CDT): Lab Results Component Value Date PTH 73.1 (H) 07/03/2018 CALCIUM 10.4 (H) 10/07/2018 CAION 5.14 07/03/2018 Assessment & Plan (10/08/2018 10:04 AM CDT): With very mildly hypercalcemia. Will check DEXA ( bone density ). If normal, will continue to watch. Otherwise, might need bisphosphates. Stress due to family tension 10/07/2018 Assessment & Plan (10/07/2018 11:05 AM CDT): Discussed situational stress and benefits of counseling. Referral provided. Hypercalcemia 04/02/2018 Assessment & Plan (04/02/2018 11:30 AM IMPORT/EXPORT ANALYST): Very midly With abnormally normal ( high normal PTH ), indicative of primary hyperparathyroidism As long as Ca stay under 11 and bone density is normal, there is no indication for any intervention Will check 24 h urine calcium. Trigger middle finger of right hand 03/06/2018 Assessment & Plan (03/06/2018 4:17 PM IMPORT/EXPORT ANALYST): Trigger finger injection completed (sterile technique). May apply ice compresses x 24 hours followed by warm compresses as needed. May return for injection L 3rd finger pend clinical course. Dry eye syndrome of both eyes 11/19/2017 Assessment & Plan (06/30/2019 7:43 AM CDT): Recommend increase lubricant eye drops to 4 times/day; consider preservative- free drops, especially if using drops more than that. Add hot compresses with lid scrubs to improve quality of tears. Assessment & Plan (12/18/2018 3:34 PM CDT): Recommend increase lubricant eye drops to 4 times/day; consider preservative- free drops, especially if using drops more than that. Add hot compresses with lid scrubs to improve quality of tears. Assessment & Plan (11/19/2017 9:19 AM CDT): Recommend increase lubricant eye drops to 4 times/day; consider preservative- free drops, especially if using drops more than that. Add hot compresses with lid scrubs to improve quality of tears. ABMD (anterior basement membrane dystrophy) 10/23 Assessment & Plan (04/29/2024 10:54 AM IMPORT/EXPORT ANALYST): Asymptomatic, continue ATs PRN Assessment & Plan (05/17/2023 3:33 PM IMPORT/EXPORT ANALYST): AFTs PRN - Uses often. No issues. Assessment & Plan (05/11/2021 1:26 PM IMPORT/EXPORT ANALYST): AFTs PRN - Warned patient that this could worsen after cataract sx. Assessment & Plan (06/30/2019 8:27 AM CDT): AFTs PRN - Warned patient that this could worsen after cataract sx. Assessment & Plan (11/19/2017 9:22 AM CDT): AFTs PRN Normally functioning cardiac pacemaker present 0 07/10/2017 Assessment & Plan (11/22/2023 3:18 PM CDT): Dual chamber pacemaker is functioning appropriately as programmed Lead impedances, sensing, and thresholds are stable No programming changes Continue remote monitoring quarterly Follow up in 1 year for device check Assessment & Plan (07/10/2017 3:48 PM CDT): NO MRI exams. Vitamin D deficiency 03/27/2017 Assessment & Plan (11/23/2022 4:18 PM CDT): Check 25 OH vit D Adjust dose of Ergocalciferol accordingly Assessment & Plan (09/15/2021 1:40 PM CDT): Check 25 OH vit D Adjust dose of vit D accordingly Assessment & Plan (09/25/2019 2:35 PM CDT): Images from the original note were not included. Assessment & Plan (08/26/2019 12:24 PM CDT): Check vit d levels Adjust dose if indicated Assessment & Plan (04/24/2019 11:33 AM IMPORT/EXPORT ANALYST): Images from the original note were not included. Update lab as per orders. Assessment & Plan (10/07/2018 11:06 AM CDT): Normal 02/2018. Assessment & Plan (07/03/2018 10:43 AM CDT): Images from the original note were not included. Assessment & Plan (04/02/2018 11:29 AM IMPORT/EXPORT ANALYST): Low normal as per last 2 readings On vit D , 2000 IU , OTC Assessment & Plan (03/06/2018 4:15 PM IMPORT/EXPORT ANALYST): Update lab as per orders. Assessment & Plan (10/17/2017 10:25 AM CDT): Update lab as per orders. Assessment & Plan (03/27/2017 10:49 AM IMPORT/EXPORT ANALYST): Check 25 oh vit D Adjust dose of vitamin D as indicated Postmenopausal bone loss 03/27/2017 Overview (01/14/2019): Dexa Axial Skeleton Bone Density 1 or [...] population. Electronically signed by: Richard Philippe M.D Assessment & Plan (01/14/2019 11:51 AM CDT): Dexa Axial Skeleton Bone Density 1 or [...] orders. You MAY resume calcium in diet. Assessment & Plan (10/07/2018 10:48 AM CDT): Patient believes she had updated DEXA within the past year but cannot recall where. She will investigate her records and obtain copy for our review. Assessment & Plan (07/10/2017 3:48 PM CDT): 25 OH Vitamin D pend. I note a bone density was ordered by Dr. Robles (endocrinology) and should be pursued. Assessment & Plan (03/27/2017 10:50 AM IMPORT/EXPORT ANALYST): Request DEXA Encounter for long-term (cur rent) use of high-risk medication 12/18/2016 Overview (04/05/2023): 05/15/2022 normal eye exam - no HCQ toxicity 03/2023 TPMT 13 Assessment & Plan (07/28/2024 9:33 PM CDT): Will monitor routine labs while on immunosuppressive medication. 02/2022 labs: Neg Hep A/B/C, Neg Tspot 03/2023: TPMT 13 04/2024: Normal OCT testing Assessment & Plan (04/08/2024 8:02 PM IMPORT/EXPORT ANALYST): Will monitor routine labs while on immunosuppressive medication. Recent CMP stable. 02/2022 labs: Neg Hep A/B/C, Neg Tspot 03/2023: TPMT 13 04/2023: Normal OCT testing Assessment & Plan (12/05/2023 10:30 AM CDT): Will monitor routine labs while on immunosuppressive medication. 02/2022 labs: Neg Hep A/B/C, Neg Tspot 03/2023: TPMT 13 04/2023: Normal OCT testing Assessment & Plan (08/08/2023 8:59 AM CDT): Will monitor routine labs while on immunosuppressive medication. 02/2022 labs: Neg Hep A/B/C, Neg Tspot 03/2023: TPMT 13 04/2023: Normal OCT testing Assessment & Plan (05/17/2023 3:36 PM IMPORT/EXPORT ANALYST): Plan spectralis mac OCT today or with last visit Started on plaquenil 2020, 200 mg BID- helps sx Might go off plaquenil if infusions start No evidence of toxicity today on exam Assessment & Plan (04/26/2023 12:31 PM IMPORT/EXPORT ANALYST): Will monitor routine labs while on immunosuppressive medication. 02/2022 labs: Neg Hep A/B/C, Neg Tspot 03/2023: TPMT 13 Assessment & Plan (03/28/2023 10:36 AM IMPORT/EXPORT ANALYST): Will monitor routine labs while on immunosuppressive medication. Will check TPMT today. 02/2022 labs: Neg Hep A/B/C, Neg Tspot Assessment & Plan (12/27/2022 8:23 AM CDT): Will monitor routine labs while on immunosuppressive medication. 02/2022 labs: Neg Hep A/B/C, Neg Tspot Assessment & Plan (08/17/2022 8:19 AM CDT): Will monitor routine labs while on immunosuppressive medication. 02/2022 labs: Neg Hep A/B/C, Neg Tspot Assessment & Plan (05/02/2022 12:40 PM IMPORT/EXPORT ANALYST): Will monitor routine labs while on immunosuppressive medication. 02/2022 labs: Neg Hep A/B/C, Neg Tspot Assessment & Plan (03/21/2022 11:32 AM IMPORT/EXPORT ANALYST): Will monitor routine labs while on immunosuppressive medication. 02/2022 labs: Neg Hep A/B/C, Neg Tspot Assessment & Plan (09/25/2019 2:32 PM CDT): Lab Results Component Value Date WBC 6.9 04/24/2019 HGB 13.3 04/24/2019 HCT 40.7 04/24/2019 MCV 100.5 (H) 04/24/2019 LABPLAT 243 04/24/2019 Chemistry Lab Results Component Value Date SODIUM 142 08/26/2019 POTASSIUM 4.4 08/26/2019 CHLORIDE 106 08/26/2019 CO2 29 08/26/2019 ANIONGAP 10 04/24/2019 BUNSER 15 08/26/2019 CREATININE 0.73 08/26/2019 GLUCOSE 82 08/26/2019 URICACID 4.6 07/10/2017 URICACID 5.3 12/07/2015 CALCIUM 10.8 (H) 08/26/2019 BILITOT 0.6 07/01/2019 BILITOT 0.5 07/30/2018 PROTEIN 6.9 07/30/2018 ALBUMIN 4.3 07/01/2019 ALBUMIN 4.4 07/30/2018 GFRNAA 87 04/24/2019 ALKPHOS 45 07/01/2019 ALKPHOS 50 07/30/2018 AST 21 07/01/2019 AST 21 07/30/2018 ALT 36 07/01/2019 ALT 26 07/30/2018 Lab Results Component Value Date SEDRATE 5 04/24/2019 Lab Results Component Value Date CRP 0.5 04/24/2019 Patient on medications requiring periodic lab monitoring for drug safety. Update lab as per orders written. Assessment & Plan (04/24/2019 11:26 AM IMPORT/EXPORT ANALYST): Patient on immunosuppressive medications requiring periodic lab monitoring for drug safety. Update lab as per orders written. Assessment & Plan (10/07/2018 11:04 AM CDT): Patient on immunosuppressive medications requiring periodic lab monitoring for drug safety. Update lab as per orders written. Assessment & Plan (07/03/2018 10:42 AM CDT): Patient on immunosuppressive medications requiring periodic lab monitoring for drug safety. Update lab as per orders written. Assessment & Plan (03/06/2018 11:00 AM IMPORT/EXPORT ANALYST): Patient on immunosuppressive medications requiring periodic lab monitoring for drug safety. Update lab as per orders written. Assessment & Plan (11/22/2017 3:16 PM CDT): Patient on immunosuppressive medications requiring periodic lab monitoring for drug safety. Update lab as per orders written. Assessment & Plan (10/17/2017 10:16 AM CDT): Patient on immunosuppressive medications requiring periodic lab monitoring for drug safety. Update lab as per orders written. Assessment & Plan (09/14/2017 10:31 AM CDT): Patient on immunosuppressive medications requiring periodic lab monitoring for drug safety. Update lab as per orders written. Assessment & Plan (07/10/2017 3:50 PM CDT): Currently patient off all DMARD therapies (prescriptions depleted). Defer resuming same pend diagnostic workup. Assessment & Plan (03/06/2017 2:56 PM IMPORT/EXPORT ANALYST): Will continue to monitor the patient with routine labs. Assessment & Plan (12/18/2016 2:38 PM CDT): Will continue to monitor the patient with routine labs. Primary osteoarthritis involving multiple joints 12/18/2016 Assessment & Plan (09/25/2019 2:32 PM CDT): She did proceed with stem cell treatments for hand osteoarthritis for which she reports perceived clinical benefit. Assessment & Plan (04/24/2019 11:43 AM IMPORT/EXPORT ANALYST): Continue symptom management. She is contemplating stem-cell infusions for her hand OA. Reviewed with patient explaining again the paucity of controlled studies documenting benefits of same and the current [employer] position. Assessment & Plan (01/14/2019 11:46 AM CDT): Continue symptom management. Assessment & Plan (10/07/2018 10:50 AM CDT): She has scheduled appointment with Ana regarding stem-cell therapy which we have discussed in the past. She asks as well about CBD oil products: There is an ever-increasing hiatus between public advocacy for CBD oil products and herbal cannabis as a therapeutic agent in rheumatic conditions and the medical evidence for efficacy and side effects. This serious shortfall covers many aspects of herbal cannabis as a therapeutic agent, including uncertainty of compound content, unknown dosing, recommendations not to use by inhalation, and the indicators of harm, both in the acute as well as chronic setting. Taking all factors into consideration, further study of individual cannabinoid molecules whereby dosing can be accurately controlled and efficacy and safety can be assessed using a standard scientific method remain to be performed. Assessment & Plan (07/03/2018 10:40 AM CDT): Progressive hypertrophic changes DIP, PIP bilateral hands discussed. She is frustrated by disfigurement and inability to wear her rings, though she is not experiencing functional impairment. She has no signs of rheumatoid deformities. She asks about stem cell therapies and I have reviewed with her the paucity of objective data supporting their use for osteoarthritis of the knees and the absence of data regarding hands. I have explained that further studies (well controlled, double-blinded studies) need to be performed before endorsing this approach. Will obtain updated x-rays hands to exclude further erosive joint changes. Assessment & Plan (10/17/2017 10:23 AM CDT): Continue diclofenac gel as needed. Assessment & Plan (07/10/2017 3:47 PM CDT): Patient with clinical exam most consistent with osteoarthritis with prominent hypertrophic changes PIP, DIP. There is little to suggest inflammatory synovitis on exam. Reviewed with patient previous labs: seronegative and imaging (x-rays and ultrasound). Recommend update lab and imaging as per orders. Discussed management osteoarthritis (symptomatic) versus rheumatoid arthritis (inflammatory, autoimmune). Defer therapeutic recommendations pend reevaluation diagnostics. Assessment & Plan (12/18/2016 2:39 PM CDT): Advised to see pain management if [facility] does not accept her as a patient. Persistent disorder of initiating or maintaining sleep 08/30/2016 Overview (09/15/2016): Persistent disorder of initiating or maintaining sleep Assessment & Plan (08/29/2018 10:54 AM CDT): She will continue with a set sleep-wake pattern going to bed at 10:00 p.m. With final awakening at 6:00 a.m.. She will increase her trazodone to 50 mg at bedtime. Assessment & Plan (08/29/2017 10:05 AM CDT): The patient will continue with good sleep hygiene habits. She will take trazodone 50 mg 1/2 to 1 tablet at bedtime. Psoriatic arthritis 08/30/2016 Overview (10/17/2017): Images from the original note were not included. Assessment & Plan (09/25/2019 2:31 PM CDT): Psoriatic arthritis clinically stable on current methotrexate regimen. No medication side effects reported. Skin as well as joints well controlled. Assessment & Plan (04/24/2019 11:32 AM IMPORT/EXPORT ANALYST): Psoriatic arthritis clinically stable on current med regimen. No med side effects reported. Continue same. Update lab as per orders. Clinically stable on present med regimen. Continue same. Assessment & Plan (01/14/2019 11:42 AM CDT): Scheduled follow up seronegative rheumatoid arthritis. Generally feels well. No med side effect reported. Rapid3 16.3 skewed by recent fall with soft tissue injuries ([facility] Update lab as per orders. She has developed a scaly patch of skin on her L elbow suspicious for psoriasis. Discussed likelihood that her seronegative arthritis is in fact psoriatic arthritis rather than RA though no change in treatment plans indicated. Steroid cream ordered for management skin; will continue to observe for new lesions. She will receive seasonal influenza immunization today. She believes she has had both Prevnar-13 and PPV-23 pneumococcal pneumonia immunizations but will confirm with Dr. Munroe. Assessment & Plan (10/07/2018 11:04 AM CDT): RA clinically stable on current med regimen. She is concerned regarding continued thinning hair. Recommend increase folic acid to 2 mg daily. Continue methotrexate 15 mg weekly. Update lab as per orders. Assessment & Plan (07/03/2018 10:41 AM CDT): Seronegative RA controlled on current med regimen.Rapid3 10.0 skewed by overlapping osteoarthritis. No med side effects reported. Update lab as per orders. Continue current med regimen unchanged. Assessment & Plan (03/06/2018 4:15 PM IMPORT/EXPORT ANALYST): Seronegative RA well controlled on current med regimen. Rapid3 4.3. She complains of trigger finger bilateral middle finger with severe pain each time she flosses her teeth. She denies medication side effects. Update lab as per orders. Assessment & Plan (10/17/2017 10:23 AM CDT): Clinically stable with improvement on methotrexate regimen. She tolerates same though complained of myalgias x 2-3 days after dose for first few weeks. She is exercising in hot tub daily (range of motion). Recommend increase methotrexate to 15 mg once weekly (6 x 2.5 mg tablets). Continue folic acid unchanged. Update lab as per orders. Assessment & Plan (09/14/2017 10:31 AM CDT): Images from the original note were not included. Patient with seronegative RA with ultrasound hands confirming inflammatory arthritis. Discussed role of disease modifying antirheumatic therapy (DMARD) and rationale for same. Recommend patient to start methotrexate (risks and benefits discussed). Reviewed as well potential role of biologic response modifiers in the future pend clinical course. METHOTREXATE PATIENT INFORMATION Methotrexate is one of the most effective and commonly used medications in the treatment of rheumatoid arthritis and other forms of inflammatory arthritis, and also may be used to treat lupus, inflammatory myositis, vasculitis, and some forms of childhood arthritis. It is often used in combination with other medications to treat arthritis. It is known as a disease-modifying anti-rheumatic drug (DMARD), because it not only decreases the pain and swelling of arthritis, but it also can decrease damage to joints and long-term disability HOW TO TAKE IT: Methotrexate comes either as pills or as a subcutaneous injection. Methotrexate is usually taken as a single dose once per week, although occasionally the dose is split into two doses, taken once per week, to improve absorption or avoid side effects. Your doctor also may prescribe a folic acid (or folate) vitamin supplement to decrease the chance of side effects. Methotrexate should not be taken if kidney or liver function is not normal. Alcohol significantly increases the risk for liver damage while taking methotrexate, so alcohol should be avoided. Regular laboratory monitoring is required to monitor blood counts and your liver while taking methotrexate. Improvements in arthritis and other conditions usually are first seen in three - six weeks. The full benefit of this drug may not be seen until after 12 weeks of treatment. SIDE EFFECTS: Methotrexate can lower the ability of your immune system to fight infections. If you develop symptoms of an infection while using this medication, you should stop it and contact your doctor. The most common side effects are gastrointestinal upset and elevations of liver function tests. About 1 - 3% of patients develop mouth sores (called stomatitis), rash, diarrhea, and abnormalities in blood counts. Some side effects do not cause symptoms, so it is important to have routine blood tests performed every 8 - 12 weeks. Methotrexate may cause cirrhosis (scarring) of the liver, but this side effect is rare and most likely to occur in patients who already have liver problems or are using alcohol or taking other drugs that are toxic to the liver. Lung problems (persistent cough or unexplained shortness of breath) can occur rarely when taking methotrexate. Slow hair loss is seen in some patients, but hair grows back when the person stops taking this medication. This can often be managed by taking folic acid. It is important to remember that most patients do not experience side effects, and that, for those who do, many of the minor side effects will improve with time. TELL YOUR DOCTOR: You should contact your doctor of you develop symptoms of an infection, such as a fever or cough, or if you think you are having any side effects. Be sure to let your doctor know if you are , planning to get , or if you are . Methotrexate treatment should be discontinued for at least three months before attempting to become . Even though methotrexate should not be taken during , it does not reduce a woman s chance of becoming in the future. Men taking methotrexate should talk to their physician prior to attempts to conceive. If you are planning on having surgery or will be receiving chemotherapy or radiation therapy, talk to your doctor first. Updated June 2016 by Ulises Mitchell MD and reviewed by the [employer] Committee on Communications and MarketingThis patient fact sheet is provided for general education only. Individuals should consult a qualified health care provider for professional medical advice, diagnosis and treatment of a medical or health condition. 2017 [employer] - See more at: [email or web address] Assessment & Plan (07/10/2017 3:47 PM CDT): See comments above. Consider independent ultrasound imaging [facility] pend review lab and x-rays if needed. Assessment & Plan (03/06/2017 2:55 PM IMPORT/EXPORT ANALYST): Patient disease activity is moderate. Complains of worsening pain and stiffness. Feels that the SSZ is no longer working. Patient is to continue SSZ. Will get repeat u/s, if minimally worsening disease activity will at HCQ, if much worse will start MTX. Discussed both medications with patient and printed out information sheets on drugs at checkout. After she has the u/s she is to have a steroid injection. Will check routine labs today. Assessment & Plan (12/18/2016 2:38 PM CDT): Patient disease activity is low. Patient is to continue SSZ. U/S from august showed mild disease activity. Will check routine labs today. Patient seen with Dr. Urbina. Recurrent pulmonary emboli 08/17/2015 Overview (09/25/2019): Images from the original note were not included. CT Chest W Contrast Status: Final result Study Result EXAMINATION: Computed tomography of the chest with intravenous contrast HISTORY: Positive d-dimer and dyspnea TECHNIQUE: Transaxial computed tomographic images of the chest were obtained with intravenous contrast according to the pulmonary embolism protocol after the uneventful administration of 100 mL Opti-Ray 350 intravenous contrast. COMPARISON: None FINDINGS: There is segmental pulmonary emboli within the right upper, right middle, right lower, left upper, lingular, and left lower lobe pulmonary arteries. The heart size is normal. There is no right heart strain. There is no mediastinal lymphadenopathy. There are no confluent pulmonary infiltrates. There are no pleural effusions. Cardiac pacemaker present. Images with bone window settings demonstrate no suspicious osseous abnormality. Images through the upper abdomen are unremarkable. IMPRESSION: Pulmonary emboli within segmental branches of right upper, right middle, right lower, left upper, lingular, and left lower lobe pulmonary arteries. The Critical results were discussed with Britney by Dr. Dr. Howard on 07/01/2019 at 1510 hours Electronically signed by: Arnaldo Howard M.D. Result History CT Chest W Contrast (Order #[id number]) on 07/01/2019 - Order Result History Report US Vein Duplex Lower Extremity Bilateral Complete Status: Final result Study Result Patient name: Marietta Baum Date of test: 07/01/2019 Hospital #: [id number] Location: [facility] Ref Physician(s): , MARGIE TAN MD Interpreted by: Vanessa Jimenez MD Tech: Evie Mohr RVT Type of Test: Lower Extremity Venous Procedure: Duplex ultrasonographic examination of the bilateral lower extremity venous system. Indications: leg pain, history of PE / / RESULT: RIGHT: Deep venous thrombosis:No Superficial venous thrombosis:No Deep venous insufficiency:N/A Superficial venous insufficiency:No LEFT: Deep venous thrombosis:No Superficial venous thrombosis:No Deep venous insufficiency:N/A Superficial venous insufficiency:No Right Findings: * Normal venous examination of lower extremity. Left Findings: * Normal venous examination of lower extremity. Summary: 1. Normal venous duplex study of both legs, without evidence of deep venous thrombosis. Confirmed on 07/01/2019 - 3:23 PM by Vanessa Jimenez MD I have personally reviewed and interpreted this study. Scans on Order [id number] CARDIOLOGY - ORDER - Scan on 07/01/2019: VASCULAR PROCEDURE Assessment & Plan (09/25/2019 2:36 PM CDT): Recurrent PE 07/01/2019 (Dr. Tan). Lifelong anticoagulation advised. Assessment & Plan (07/10/2017 3:48 PM CDT): Noted. Mobitz type II atrioventricular block 12/22/2014 Assessment & Plan (11/22/2023 3:18 PM CDT): Mobitz II second degree AV block with associated syncope s/p dual chamber pacemaker 02/20/2014 No recurrent syncope Nocturnal hypoxemia 09/23/2014 Overview (07/27/2016): Nocturnal hypoxemia Assessment & Plan (08/29/2018 10:55 AM CDT): She will wear O2 at 2 L nightly for her nocturnal hypoxemia. Assessment & Plan (08/29/2017 10:05 AM CDT): She will wear O2 at 2 L at night with sleep. Snoring 09/15/2014 Overview (07/27/2016): Snoring Short sleeper syndrome 09/15/2014 Overview (07/27/2016): Short sleeper Assessment & Plan (08/29/2018 10:55 AM CDT): She will continue to set a goal for 8-9 hours of sleep nightly. Mixed hyperlipidemia 09/06/2013 Overview (07/26/2016): Hypercholesterolemia Assessment & Plan (02/17/2020 11:11 AM CDT): Check fasting lipids Consider starting Zetia Assessment & Plan (03/27/2017 10:54 AM IMPORT/EXPORT ANALYST): Low chol low fat diet Diet and exercise Recheck fasting lipids Restart statin as indicated Impaired glucose tolerance 09/06/2013 Overview (07/27/2016): Prediabetes Assessment & Plan (02/17/2020 11:10 AM CDT): Diet and exercise Check hba1c Multinodular goiter 09/06/2013 Overview (07/28/2016): Multinodular goiter Assessment & Plan (02/17/2020 11:10 AM CDT): No changes on PE No local symptoms Infection due to fungus 11/22/1999 Overview (05/12/2022): Ganglion of joint 05/24/1999 Overview (05/12/2022): right wrist ganglion right wrist ganglion Dysfunctional uterine bleeding 01/07/1998 Overview (05/12/2022): 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 10/12/1997 Overview (05/12/2022): Resolved Problems Problem Noted Date Diagnosed Date Resolved Date 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 If there is a need to make changes, will recheck levels in 2-3 months. Instructions to patient on taking medication properly : in the morning, on an empty stomach , 1 h part from food and/or other meds. Also it was explained , to the patient that if any doses are missed, can take 2-3 tab together ,to make up for the missed dose(s) and to make sure at the end to the week, 7 tabs have been taken. Assessment & Plan (08/26/2019 12:24 PM CDT): Will check TSH and free T4 Will adjust dose of Levothyroxine accordingly . If there is a need to make changes, will recheck levels in 2-3 months. Instructions to patient on taking medication properly : in the morning, on an empty stomach , 1 h part from food and/or other meds. If any doses are missed, can take 2-3 tab together ,to make up for the missed dose; make sure at the end to the week, 7 tabs have been taken. Assessment & Plan (02/18/2019 4:32 PM CDT): Continue levothyroxine at current dose of 75 mcg daily Assessment & Plan (01/14/2019 11:34 AM CDT): Lab Results Component Value Date TSH 0.86 04/02/[address] Milly Robles Assessment & Plan (10/08/2018 10:04 AM CDT): Continue Synthroid, 75 mcg daily Combined forms of age-relate d cataract of right eye 11/19/2017 01/16/2020 Assessment & Plan (12/31/2019 12:44 PM CDT): Patient complains of significant symptoms and problems [...] made to schedule this elective surgery. Rec phaco/ intraocular lens (IOL) right eye (OD)- aim plano (better than left eye (OS)). Standard ok. No toric needed Assessment & Plan (12/16/2019 9:55 AM CDT): Assessment & Plan (06/30/2019 8:35 AM CDT): Patient complains of significant symptoms and problems [...] Bifocal. Info given. Will discuss after testing. Assessment & Plan (12/18/2018 3:40 PM CDT): Not visually significant. Do not recommend surgery at this time. Continue to monitor. Patient to call if problems with activities of daily living. Brochure offered/given. Vision may come and goes a bit. Has had multiple concussions? Rec conservative therapy until worsens. Reassured. Assessment & Plan (11/19/2017 9:18 AM CDT): Not visually significant. Do not recommend surgery at this time. Continue to monitor. Patient to call if problems with activities of daily living. Brochure offered/given. 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 milly Robles Assessment & Plan (10/07/2018 11:04 AM CDT): Managed by Dr. Milly Robles. Lab Results Component Value Date TSH 0.86 04/02/2018 Assessment & Plan (04/02/2018 11:28 AM IMPORT/EXPORT ANALYST): Will check TSH and free T4 Will adjust dose of Levothyroxine accordingly . If there is a need to make changes, will recheck levels in 2-3 months. Instructions to patient on taking medication properly : in the morning, on an empty stomach , 1 h part from food and/or other meds. If any doses are missed, can take 2-3 tab together ,to make up for the missed dose; make sure at the end to the week, 7 tabs have been taken. Assessment & Plan (03/27/2017 10:35 AM IMPORT/EXPORT ANALYST): Check TSH, free T4 Adjust dose of Levothyroxine accordingly . Instructions to patient on taking medication properly Knee pain 09/13/2016 10/17/2017 Overweight with body mass in dex (BMI) 25.0-29.9 08/30/2016 03/20/2022 Overview (09/15/2016): Adult BMI 29.0-29.9 kg/sq m Assessment & Plan (04/24/2019 11:27 AM IMPORT/EXPORT ANALYST): BMI satisfactory. A healthy diet and routine exercise regimen are clifford to weight management. Assessment & Plan (01/14/2019 11:47 AM CDT): An optimal BMI (body mass index) is between 20 and 25. Encourage weight loss. Each pound of weight lost unloads 3-4 pounds per square inch pressure from weight bearing joints. Diet and exercise are the keys to weight management. Assessment & Plan (10/07/2018 11:05 AM CDT): An optimal BMI (body mass index) is between 20 and 25. Encourage weight loss. Each pound of weight lost unloads 3-4 pounds per square inch pressure from weight bearing joints. Diet and exercise are the keys to weight management. Assessment & Plan (07/03/2018 10:42 AM CDT): An optimal BMI (body mass index) is between 20 and 25. Encourage weight loss. Each pound of weight lost unloads 3-4 pounds per square inch pressure from weight bearing joints. Diet and exercise are the keys to weight management. Assessment & Plan (03/06/2018 4:16 PM IMPORT/EXPORT ANALYST): BMI satisfactory. A healthy diet and routine exercise regimen are clifford to weight management. Assessment & Plan (11/22/2017 3:16 PM CDT): An optimal BMI (body mass index) is between 20 and 25. Encourage weight loss. Each pound of weight lost unloads 3-4 pounds per square inch pressure from weight bearing joints. Diet and exercise are the keys to weight management. Assessment & Plan (10/17/2017 10:16 AM CDT): An optimal BMI (body mass index) is between 20 and 25. Encourage weight loss. Each pound of weight lost unloads 3-4 pounds per square inch pressure from weight bearing joints. Diet and exercise are the keys to weight management. Assessment & Plan (09/14/2017 10:32 AM CDT): An optimal BMI (body mass index) is between 20 and 25. Encourage weight loss. Each pound of weight lost unloads 3-4 pounds per square inch pressure from weight bearing joints. Diet and exercise are the keys to weight management. Assessment & Plan (07/10/2017 3:48 PM CDT): An optimal BMI (body mass index) is between 20 and 25. Encourage weight loss. Each pound of weight lost unloads 3-4 pounds per square inch pressure from weight bearing joints. Diet and exercise are the keys to weight management. Mixed hyperlipidemia 08/09/2015 018 Fatigue 09/15/2014 08/17/2022 Overview (07/27/2016): Fatigue Increased body mass index (BMI) 02/13/2014 10/17/2017 Chest pain 12/24/2013 10/17/2017 History of pulmonary embolism 12/24/2013 10/17/2017 Dyspnea on exertion 12/24/2013 10/18/19 18 Senile nuclear cataract 05/21/200104/24 Overview (05/12/2022): Encounters Date Type Department Care Team Description 08/19/2024 4:00 PM CDT Office Visit [facility] [address] [place] [address] Medical Office Building [address] [place] [id number] Dequan Ivey MD Recurrent pulmonary emboli (HCC) (Primary Dx); Mixed hyperlipidemia; Mobitz type II atrioventricular block; Essential hypertension; KATHARINA (obstructive sleep apnea); BMI 33.0-33.9,adult 07/30/2024 Results Follow-Up [facility] [address] [place] [phone] Micheline Russell PA 07/29/2024 9:30 AM CDT Office Visit [facility] [address] [place] [phone] Micheline Russell PA Seronegative rheumatoid arthritis (HCC) (Primary Dx); Encounter for long-term (current) use of high-risk medication 07/29/2024 Telephone [facility] [address] [place] [phone] Breanna Polo weekly Approved 06/13/2024 Orders Only [facility] [address] [place] [address] Medical [address] [place] [phone] Wisam Flores MD PhD from Last 3 Months Immunizations Immunization Administration Dates Next Due Influenza, Quad, Adjuvantate d, Intramuscular 12/29/2019 Influenza, Quadrivalent, Hig h Dose, Preservative Free, Intrr 03/03/2021 Influenza, Trivalent, High D ose, Split, Preservative Free, Intramuscular 01/14/2019,01/08/2018,01/21/2016 Influenza, Trivalent, IM (MDV) 01/01/2014 Influenza, Unspecified 12/29/2019,01/21/2016,02/2014 Pfizer SARS-CoV-2 Monovalent Vaccination (12+ Yrs) PURPLE 12/17/2020,07/13/2020,06/17/2020 Pneumococcal Conjugate PCV 13 01/23/2019, 016 Pneumococcal Polysaccharide PPV23 12/29/2019 Tdap 03/22/2020 ZOSTER Recombinant 11/07/2017,08/16/2017, 018 Surgical History Surgery Date Site/Laterality Comments OTHER SURGICAL HISTORY tighten lower lids of eyes SECTION 1970, 1976, 1980 CHOLECYSTECTOMY 04/23/1987 - 04/22/1988 HYSTERECTOMY 04/23/1998 - 04/22/1999 CARDIAC PACEMAKER PLACEMENT 04/23/2014 - 04/22/2015 CARDIAC PACEMAKER PLACEMENT 02/19/2014 CATARACT EXTRACTION 12/15/2019 Left Toric IOL CATARACT EXTRACTION 01/15/2020 Right PC/IOL Aim distance REPLACEMENT TOTAL KNEE 01/21/2021 - 02/20/2021 Left INTRAOCULAR LENS INSERTION KNEE SURGERY 04/23/2020 - 04/22/2021 Bilateral Knee replacement TONSILLECTOMY 04/23/1955 - 04/22/1956 Medical History Medical History Date Comments Dyslipidemia Mobitz type 2 second degree atrioventricular blo ck Pulmonary embolism (HCC) 07/11/2019 PONV (postoperative nausea and vomiting) Sleep apnea RA (rheumatoid arthritis) (HCC) OA (osteoarthritis) Pacemaker Hypothyroidism Psoriasis Osteoarthritis Family History Medical History Relation Name Comments Coronary artery disease Father Tracy nary artery disease; Diabetes Father Diabetes type II Father Diabetes -T ype 2; Heart disease Father Diabetes Maternal Grandmother Cancer Mother Glaucoma Mother Diabetes Other 1 Family history of Diabetes mellitus; Hypertension Other 2 Family history of Hypertension; Cancer Other 3 Family history of Cancer, unknown; Diabetes Sister Heart disease Sister Stroke Sister Anesthesia problems Neg Hx Macular degeneration Neg Hx Retinal detachment Neg Hx Relation Name Status Comments Father Maternal Grandmother Mother Other 1 Other 2 Other 3 Sister Social History Tobacco Use Types Packs/Day Years Used Date Smoking Tobacco: Former Cigarettes 0.1 1 1 - 1990 Smokeless Tobacco: Never Tobacco Cessation:Counseling Given: Not Answered Alcohol Use Standard Drinks/Week Comments Not Currently [...] AM CDT Legal Sex Female 1:54 AM IMPORT/EXPORT ANALYST Gender Identity Female 07/09/2018 7:53 AM CDT Sexual Orientation Straight 06/30/2018 8: 30 AM CDT Occupation Industry Job Start Date Job End Date Retired Not on file Not on file Not on file Obstetrics History Last Filed Vital Signs Vital Sign Reading Time Taken Comments Blood Pressure 120/72 08/19/2024 3:45 PM CDT Pulse 78 08/19/2024 3:45 PM CDT Temperature 36.9 C (98.5 F) 04/27/2021 10:20 AM IMPORT/EXPORT ANALYST Respiratory Rate 20 02/27/2024 2:08 PM IMPORT/EXPORT ANALYST Oxygen Saturation 94% 08/19/2024 3:45 PM CDT Inhaled Oxygen Concentration - - Weight 87.5 kg (193 lb) 08/19/2024 3:45 PM CDT Height 162.6 cm (5' 4 ) 08/19/2024 3:45 PM CDT Body Mass Index 33.13 08/19/2024 3:45 PM CDT Plan of Treatment Health Maintenance Due Date Last Done Comments Colon Cancer Screening-Colonoscopy 1949 Hepatitis B Screening 1967 Well Visit 65+ 2014 Osteoporosis Screening-Bone Density Scan 10/16/2020 10/16/2018 Covid-19 Vaccine (2023- 5 season) 2023 12/17/2020, 07/13/2020, 06/17/2020 Influenza Vaccine (Season Ended) 2024 03/03/2021, 12/29/2019, 12/29/2019, Additional history exists Depression Screening 02/26/2025 02/27/2024, 09/15/2021, 09/16/2020, Additional history exists Fall Risk Assessment 02/26/2025 02/27/2024, 01/15/2020, 01/14/2019, Additional history exists DTaP/Tdap/Td Vaccine (2 - Td or Tdap) 03/22/2030 03/22/2020 Zoster Vaccine Completed 11/07/2017, 07/23, 08/15/2017 Hepatitis C Screening Completed 07/01/2019 , 07/30/2018, 07/10/2017 Pneumococcal vaccine 65+ Completed 020, 01/23/2019, 01/21/2016 Medical Devices Implanted Type Area Shoe Trimmer Device Identifier Shelf Expiration Date Model / Serial / Lot [employer] [id number] Acrysof Iq Toric Stableforce 6mm 13mm 1 Piece Foldable Aspheric - [id number] - [id number] Implanted:Qty: 1 on 12/15/2019 by Gabriella Molina MD at [facility] Lens Left: Eye [employer] 06/03/2024 [id number] 0 / [id number] / 0 Pacemaker Pacemaker Left: Chest [employer] [id number] Acrysof Iq Stableforce Ultrasert Tensionglide 6mm 13mm Aspheric - [id number] - [id number] Implanted:Qty: 1 on 01/15/2020 by Gabriella Molina MD at [facility] Right: Eye [employer] 09/23/2022 [id number] 0 / [id number] / [id number] Procedures Procedure Name Priority Date/Time Associated Diagnosis Comments CRP (ACUTE PHASE) Routine 07/29/2024 10: 00 AM CDT Seronegative rheumatoid arthritis (HCC) Encounter for long-term (current) use of high-risk medication ERYTHROCYTE SEDIMENTATION RATE Routine 07/29/2024 10:00 AM CDT Seronegative rheumatoid arthritis (HCC) Encounter for long-term (current) use of high-risk medication COMPREHENSIVE METABOLIC PANEL Routine 07/29/2024 10:00 AM CDT Seronegative rheumatoid arthritis (HCC) Encounter for long-term (current) use of high-risk medication CBC WITH AUTO DIFFERENTIAL Routine 07/29/2024 10:00 AM CDT Seronegative rheumatoid arthritis (HCC) Encounter for long-term (current) use of high-risk medication DEVICE CHECK - REMOTE Routine 06/13/2024 10:52 PM IMPORT/EXPORT ANALYST HEPATITIS PANEL, ACUTE Routine 07/01/2019 10:28 AM CDT Elevated liver function tests DEXA AXIAL SKELETON BONE DENSITY 1 OR MORE SITES Schedule Routine, Read Routine (OP Routine) 10/16/2018 10:43 AM CDT Hyperparathyroidi sm, primary from Last 3 Months or Most Recently Relevant to Health Maintenance Results * (ABNORMAL) CBC with auto differential (07/29/2024 10:00 AM CDT) [facility] WBC 6.5 3.8 - 10.8 Thousand/u L [facility] RBC, POC 4.78 3.80 - 5.10 Million/uL [facility] Hgb 15.1 11.7 - 15.5 g/dL [facility] Hct 45.8(H) 35.0 - 45.0 % [facility] MCV 95.8 80.0 - 100.0 fL [facility] MCH 31.6 27.0 - 33.0 pg [facility] MCHC 33.0 32.0 - 36.0 g/dL [facility] Comment: For adults, a slight decrease in the calculated MCHC value (in the range of 30 to 32 g/dL) is most likely not clinically significant; however, it should be interpreted with caution in correlation with other red cell parameters and the patient's clinical condition. Rdw 13.5 11.0 - 15.0 % [facility] Platelets 234 140 - 400 Thousand/u L [facility] MPV 11.7 7.5 - 12.5 fL [facility] Neutrophils, abs 2,717 1,500 - 7,800 cells/uL [facility] Lymphocytes, abs 2,880 850 - 3,900 cells/uL [facility] Monocyte abs 670 200 - 950 cells/uL [facility] Eosinophils, abs 202 15 - 500 cells/uL [facility] Basophils, abs 33 0 - 200 cells/uL [facility] Neutrophils 41.8 % [facility] Lymphocyte pct 44.3 % [facility] Monocytes 10.3 % [facility] Eosinophils 3.1 % [facility] Basophils 0.5 % [facility] Blood 07/29/2024 10:0 0 AM CDT 07/29/2024 10:01 AM CDT Micheline FINE LAB BLOOD ORDER GARY Final Result Performing Organization Address City/[facility]/ZIP Co de Phone Number [facility] [address] [place] [address] * Erythrocyte sedimentation rate (07/29/2024 10:00 AM CDT) Pathologist [facility] Erythrocyte sedimentation rate 2 < OR = 30 mm/h [facility] Blood 07/29/2024 10:0 0 AM CDT 07/29/2024 10:01 AM CDT Micheline FINE LAB BLOOD ORDER GARY Final Result [facility] [address] [place] [phone] * CRP (acute phase) (07/29/2024 10:00 AM CDT) C-RP <3.0 <8.0 mg/L [facility] Blood 07/29/2024 10:0 0 AM CDT 07/29/2024 10:01 AM CDT Micheline FINE LAB BLOOD ORDER GARY Final Result [facility] [address] [place] [phone] * (ABNORMAL) Comprehensive metabolic panel (07/29/2024 10:00 AM CDT) Glucose 102(H) 65 - 99 mg/dL [facility] Comment: Fasting reference interval For someone without known diabetes, a glucose value between 100 and 125 mg/dL is consistent with prediabetes and should be confirmed with a follow-up test. BUN 13 7 - 25 mg/dL [facility] Creatinine 0.83 0.60 - 1.00 mg/dL [facility] eGFR 73 > OR = 60 mL/min/1.7 3m2 [facility] BUN/creat ratio SEE NOTE: 6 - 22 (calc) [facility] Comment: Not Reported: BUN and Creatinine are within reference range. Sodium 142 135 - 146 mmol/L [facility] Potassium, pl 4.6 3.5 - 5.3 mmol/L [facility] Chloride 105 98 - 110 mmol/L [facility] CO2 31 20 - 32 mmol/L [facility] Calcium 10.9(H) 8.6 - 10.4 mg/dL [facility] Protein, sr 7.5 6.1 - 8.1 g/dL [facility] Albumin 4.8 3.6 - 5.1 g/dL [facility] [facility] GLOBULIN 2.7 1.9 - 3.7 g/dL (calc) [facility] Alb/glob ratio 1.8 1.0 - 2.5 (calc) [facility] Bilirubin, total 0.7 0.2 - 1.2 mg/dL [facility] Alk phos 53 37 - 153 U/L [facility] AST 23 10 - 35 U/L [facility] ALT (SGPT) 42(H) 6 - 29 U/L [facility] Blood 07/29/2024 10:0 0 AM CDT 07/29/2024 10:01 AM CDT Micheline FINE LAB BLOOD ORDER GARY Final Result ANTOINE [facility] [id number] [place] [id number] * DEVICE CHECK - REMOTE (06/13/2024 10:52 PM IMPORT/EXPORT ANALYST) Anatomical Region Laterality Modality Other 06/13/2024 10:5 2 PM IMPORT/EXPORT ANALYST Narrative 08/09/2024 4:40 PM CDT Interpretation Summary: Battery and Leads (BL) Normal parameters noted on battery and lead(s) --- 16 months (11 to 21 months) remaining longevity (implanted 2013). Lead impedance, sensing, and threshold trends stable and appropriate. No short V-V intervals. Presenting Rhythm (WV) Atrial Pacing-Ventricular Sensing (AP-VS) --- AP/VS 77 bpm. Arrhythmic events (AE) No new arrhythmic events in monitoring period --- Since 03/03/24: No AHR or VHR episodes. Anticoagulation (AC) Patient prescribed Apixaban (Eliquis) Patient on anticoagulant therapy Transmission Information (TI) Device Summary Report Follow Up (FU) Patient's primary treating physician will be apprised of findings Procedure Note Wisam Flores MD PhD - 08/09/2024 Interpretation Summary: Battery and Leads (BL) Normal parameters noted on battery and lead(s) --- 16 months (11 to 21months) remaining longevity (implanted 2013). Lead impedance, sensing,and threshold trends stable and appropriate. No short V-V intervals. Presenting Rhythm (WV) Atrial Pacing-Ventricular Sensing (AP-VS) --- AP/VS 77 bpm. Arrhythmic events (AE) No new arrhythmic events in monitoring period --- Since 03/03/24: No AHRor VHR episodes. Anticoagulation (AC) Patient prescribed Apixaban (Eliquis) Patient on anticoagulant therapy Transmission Information (TI) Device Summary Report Follow Up (FU) Patient's primary treating physician will be apprised of findings us Wisam Flores MD PhD [facility] [place] [facility] Final Result * Hepatitis panel, acute (07/01/2019 10:28 AM CDT) Hep A IgM Nonreactive Nonreactive [facility] Comment: Interpretive Data If test is reported as GRAYZONE, new sample should be drawn in two weeks for testing. Current interpretive data was last revised on 2016. Testing performed by: [facility], [address] [place] [address]., [id number] Hep B core IgM Nonreactive Nonreactive [facility] Comment: Interpretive Data If test is reported as GRAYZONE, new sample should be drawn for testing. Current interpretive data was last revised on 2016. Testing performed by: [facility], [address] [place]., [address] Hep C Ab Nonreactive Nonreactive [facility] Comment: Interpretive Data Positive results should be confirmed by a molecular method. If positive, a second separately collected sample should be submitted for Hepatitis C Virus (HCV) RNA Detection and Quantitation by Real-Time Reverse [employer]-PCR (RT-PCR). Current interpretive data was last revised on 2016. Testing performed by: [facility], [address] [place]., [address] HepBsAg Nonreactive Nonreactive [facility] Comment:Testing performed by : [facility], [address] [place] [address]., [id number] Blood specimen (specimen) 07/01/2019 10:28 AM CDT 07/01/2019 12:59 PM CDT us Fabrizio Cole MD LAB MICROBIOLOGY - GENERA L ORDERABLES Edited Result - Final [facility] [address] [facility]. Department [place] [address] * Dexa Axial Skeleton Bone Density 1 or 2 Site (10/16/2018 10:43 AM CDT) Anatomical Region Laterality Modality Body N/A Other 10/16/2018 10:5 5 AM CDT Impressions 10/16/2018 10:56 AM CDT WITHIN THE RANGE OF NORMAL. COMMENT: Carlos defines the T-score of between -1 and [...] and age group population. Electronically signed by: Trev Phelps 10/16/2018 10:56 AM CDT EXAM: DEXA Bone Density Axial HISTORY: hypercalcemia. FINDINGS: The mean bone mineral content of the lumbar spine is 1.054 g/cm2. The T-score is 0.1 consistent with normal bone mineral density. The mean bone mineral content of the wrist-forearm is 0.528 g/cm2. The total T-score is -0.9. This is consistent with normal bone mineral density. Procedure Note Richard Philippe MD - 10/16/2018 EXAM: DEXA Bone Density Axial HISTORY: hypercalcemia. FINDINGS: The mean bone mineral content of the lumbar spine is 1.054 g/cm2. The T-score is 0.1 consistent with normal bone mineral density. The mean bone mineral content of the wrist-forearm is 0.528 g/cm2. The total T-score is -0.9. This is consistent with normal bone mineral density. IMPRESSION: WITHIN THE RANGE OF NORMAL. COMMENT: WRobertHEunice defines the T-score of between -1 and [...] population. Electronically signed by: Richard Philippe M.D Milly Robles MD IMG DXA PROCEDURES Final Result from Last 3 Months or Most Recently Relevant to Health Maintenance Insurance [employer] MEDICARE PPO [employer] MEDICARE PPO [employer] MEDICARE PPO [employer] MED[employer]ARE PPO [employer] MEDICARE PPO Care Teams Director Print Relationship Specialty Start Date End Date Jose G Munroe MD [address] [facility] [address] [place] [address] PCP - General Family Medicine 2/2/21 Radha Torres, LMT Massage Therapy 02/19/19 [place] [address] [place] [address] Physical Therapist Physical Therapy 03/27/19 Logan Arenas MD [address] [place] [address] Consulting Physician Rheumatology 01/30/22
--- OUTSIDE RECORDS SUMMARY | 2024-08-25 10:31 | XMS_ITS | Referral Summary ---
Author Organization [facility] [address] Address [address] [place] [address] Phone Care Team Providers Care Release Specialist Name Role Phone Radha Torres LMT Unavailable Unavailable Radha Morales PT Unavailable [phone] Jose G Munroe MD Primary Care Provider Logan Arenas MD Unavailable [phone] Encounters Date Type Department Care Team Description 08/19/2024 4:00 PM CDT Office Visit [facility] [address] [facility] [place] [address] Dequan Ivey MD Recurrent pulmonary emboli (HCC) (Primary Dx); Mixed hyperlipidemia; Mobitz type II atrioventricular block; Essential hypertension; KATHARINA (obstructive sleep apnea); BMI 33.0-33.9,adult 07/30/2024 Results Follow-Up [facility] [address] [place] [phone] Micheline Russell PA 07/29/2024 Telephone [facility] [address] [place] [phone] Breanna Polo weekly Approved 07/29/2024 9:30 AM CDT Office Visit [facility] [address] [place] [phone] Micheline Russell PA Seronegative rheumatoid arthritis (HCC) (Primary Dx); Encounter for long-term (current) use of high-risk medication 06/13/2024 Orders Only [facility] [address] [place] [phone] Wisam Flores MD PhD from Last 3 Months Allergies Active Allergy Reactions Criticality Noted Date [...] 03/28/2023 Assessment & Plan (03/28/2023 10:40 AM WALL TO WALL CARPET INSTALLER): Soft, nonmobile nodularity along radial aspect of [...] 05/15 Assessment & Plan (04/29/2024 10:54 AM WALL TO WALL CARPET INSTALLER): S/P YAG OU Assessment & Plan (08/06/2023 [...] office. Assessment & Plan (06/15/2023 9:22 AM WALL TO WALL CARPET INSTALLER): Visually significant PCO right eye (OD). R/b/a [...] office. Assessment & Plan (05/17/2023 3:32 PM WALL TO WALL CARPET INSTALLER): Likely sig PCO right eye (OD)>left eye [...] needed. Assessment & Plan (04/29/2024 11:02 AM WALL TO WALL CARPET INSTALLER): No ophthalmic complications Assessment & Plan (04/08/2024 8:59 PM WALL TO WALL CARPET INSTALLER): Patient has been off Simponi Aria since [...] needed. Assessment & Plan (04/26/2023 3:37 PM WALL TO WALL CARPET INSTALLER): CDAI 9, low Repeat right hand/wrist US [...] follow up with her PCP (may be BPPV). The only remaining treatment options at this point are biologic medications, including infusions. She is comfortable with remaining on 400mg HCQ daily for now with close monitoring. Continue biotin gummies and folic acid daily for hair thinning. CBC/CMP today. Will have her return in 2-3 months, sooner if needed. Seen with Dr. Arenas. Assessment & Plan (03/28/2023 10:38 AM WALL TO WALL CARPET INSTALLER): CDAI 16, moedrate Repeat right hand/wrist US [...] continued elevated Ca (10.8) - is seeing lsat instructor who is monitoring her elevated Ca and [...] needed. Assessment & Plan (05/02/2022 12:46 PM WALL TO WALL CARPET INSTALLER): Began 400mg HCQ daily after last visit [...] needed. Assessment & Plan (03/21/2022 12:57 PM WALL TO WALL CARPET INSTALLER): Ms. Baum is a 71yo female with [...] Arenas. Assessment & Plan (03/09/2022 9:16 PM WALL TO WALL CARPET INSTALLER): Ms. Baum is a 71yo female with PMH of Mobitz 2 AV block, HLD, PE (), hx tobacco use (quit 1990), KATHARINA (cpap), psoriasis, RA, OA, hypothyroidism, cataracts and osteoporosis who presents to [facility] care. She is currently on [...] 05/11/2021 Assessment & Plan (05/17/2023 3:32 PM WALL TO WALL CARPET INSTALLER): h/o of ocular hypertension in the past. Now intraocular pressure (IOP) ok. FHx of primary open angle glaucoma (POAG). Note pach. Note iop elevated after cataract extraction (CE), but now ok without drops Assessment & Plan (05/11/2021 2:11 PM WALL TO WALL CARPET INSTALLER): h/o of ocular hypertension in the past. Now intraocular pressure (IOP) ok. FHx of primary open angle glaucoma (POAG). Note pach today. Note iop elevated after cataract extraction (CE), but now ok without drops Primary osteoarthritis of left knee 10/26/2020 Acquired hypothyroidism 09/16/2020 Assessment & Plan (02/27/2024 4:50 PM WALL TO WALL CARPET INSTALLER): Chronic, stable. Update 25 hydroxy vitamin-D level [...] LMT Assessment & Plan (04/29/2024 10:54 AM WALL TO WALL CARPET INSTALLER): S/P YAG OU Assessment & Plan (07/06/2023 [...] stable Assessment & Plan (06/15/2023 9:21 AM WALL TO WALL CARPET INSTALLER): 12/15/2019- EXTRACTION CATARACT - PHACOEMULSIFICATION AND LENS IMPLANT with TORIC IOL - left eye - Left- LMT 01/15/2020- EXTRACTION CATARACT - PHACOEMULSIFICATION AND LENS IMPLANT - right eye - Right aim plano - LMT Assessment & Plan (05/17/2023 2:27 PM WALL TO WALL CARPET INSTALLER): 12/15/2019- EXTRACTION CATARACT - PHACOEMULSIFICATION AND LENS IMPLANT with TORIC IOL - left eye - Left 01/15/2020- EXTRACTION CATARACT - PHACOEMULSIFICATION AND LENS IMPLANT - right eye - Right aim plano Implants in good position. Vision stable Assessment & Plan (05/11/2021 2:10 PM WALL TO WALL CARPET INSTALLER): 12/15/2019- EXTRACTION CATARACT - PHACOEMULSIFICATION AND LENS [...] given about 2019 novel coronavirus by tel margarito 09/25/2019 Assessment & Plan (09/25/2019 2:37 PM CDT): The full impact of autoimmune diseases and immunomodulatory medications on susceptibility and complications of coronavirus disease is not yet studied. Because we have monorail helper with this new virus we do not [...] that you continue to adhere to the mczx-ch-brdh orders for the time being, especially in view of your potentially immunocompromised status. Feel free to reach out to us if you have additional questions after you review this information. You may review the current [place] [employer] Covid-19 clinical guidance for Patients with Rheumatic Diseases if you copy and paste the link below into your web browser: [email or web address]-[email or web address] Of course, methotrexate should be placed on hold in the event you were to become ill. Environmental and seasonal allergies 09/19/2019 Cigarette nicotine dependence in remission 07/28 High risk medication use 07/29/2019 Assessment & Plan (04/29/2024 11:09 AM WALL TO WALL CARPET INSTALLER): HCQ x ~10 years Last eGFR 2022 [...] 01/14/2019 Assessment & Plan (03/21/2022 12:50 PM WALL TO WALL CARPET INSTALLER): Recent cspine with moderate OA changes and [...] 10/08/2018 Assessment & Plan (02/27/2024 4:50 PM WALL TO WALL CARPET INSTALLER): Pathophysiology of the condition was discussed with [...] 04/02/2018 Assessment & Plan (04/02/2018 11:30 AM WALL TO WALL CARPET INSTALLER): Very midly With abnormally normal ( high normal PTH ), indicative of primary hyperparathyroidism As long as Ca stay under 11 and bone density is normal, there is no indication for any intervention Will check 24 h urine calcium. Trigger middle finger of right hand 03/06/2018 Assessment & Plan (03/06/2018 4:17 PM WALL TO WALL CARPET INSTALLER): Trigger finger injection completed (sterile technique). May [...] 10/23 Assessment & Plan (04/29/2024 10:54 AM WALL TO WALL CARPET INSTALLER): Asymptomatic, continue ATs PRN Assessment & Plan (05/17/2023 3:33 PM WALL TO WALL CARPET INSTALLER): AFTs PRN - Uses often. No issues. Assessment & Plan (05/11/2021 1:26 PM WALL TO WALL CARPET INSTALLER): AFTs PRN - Warned patient that this [...] indicated Assessment & Plan (04/24/2019 11:33 AM WALL TO WALL CARPET INSTALLER): Images from the original note were not included. Update lab as per orders. Assessment & Plan (10/07/2018 11:06 AM CDT): Normal 02/2018. Assessment & Plan (07/03/2018 10:43 AM CDT): Images from the original note were not included. Assessment & Plan (04/02/2018 11:29 AM WALL TO WALL CARPET INSTALLER): Low normal as per last 2 readings On vit D , 2000 IU , OTC Assessment & Plan (03/06/2018 4:15 PM WALL TO WALL CARPET INSTALLER): Update lab as per orders. Assessment & Plan (10/17/2017 10:25 AM CDT): Update lab as per orders. Assessment & Plan (03/27/2017 10:49 AM WALL TO WALL CARPET INSTALLER): Check 25 oh vit D Adjust dose [...] pursued. Assessment & Plan (03/27/2017 10:50 AM WALL TO WALL CARPET INSTALLER): Request DEXA Encounter for long-term (cur rent) use of high-risk medication 12/18/2016 Overview (04/05/2023): 05/15/2022 normal eye exam - no HCQ toxicity 03/2023 TPMT 13 Assessment & Plan (07/28/2024 9:33 PM CDT): Will monitor routine labs while on immunosuppressive medication. 02/2022 labs: Neg Hep A/B/C, Neg Tspot 03/2023: TPMT 13 04/2024: Normal OCT testing Assessment & Plan (04/08/2024 8:02 PM WALL TO WALL CARPET INSTALLER): Will monitor routine labs while on immunosuppressive [...] testing Assessment & Plan (05/17/2023 3:36 PM WALL TO WALL CARPET INSTALLER): Plan spectralis mac OCT today or with last visit Started on plaquenil 2020, 200 mg BID- helps sx Might go off plaquenil if infusions start No evidence of toxicity today on exam Assessment & Plan (04/26/2023 12:31 PM WALL TO WALL CARPET INSTALLER): Will monitor routine labs while on immunosuppressive medication. 02/2022 labs: Neg Hep A/B/C, Neg Tspot 03/2023: TPMT 13 Assessment & Plan (03/28/2023 10:36 AM WALL TO WALL CARPET INSTALLER): Will monitor routine labs while on immunosuppressive [...] Tspot Assessment & Plan (05/02/2022 12:40 PM WALL TO WALL CARPET INSTALLER): Will monitor routine labs while on immunosuppressive medication. 02/2022 labs: Neg Hep A/B/C, Neg Tspot Assessment & Plan (03/21/2022 11:32 AM WALL TO WALL CARPET INSTALLER): Will monitor routine labs while on immunosuppressive [...] written. Assessment & Plan (04/24/2019 11:26 AM WALL TO WALL CARPET INSTALLER): Patient on immunosuppressive medications requiring periodic lab [...] written. Assessment & Plan (03/06/2018 11:00 AM WALL TO WALL CARPET INSTALLER): Patient on immunosuppressive medications requiring periodic lab [...] workup. Assessment & Plan (03/06/2017 2:56 PM WALL TO WALL CARPET INSTALLER): Will continue to monitor the patient with routine labs. Assessment & Plan (12/18/2016 2:38 PM CDT): Will continue to monitor the patient with routine labs. Primary osteoarthritis involving multiple joints 12/18/2016 Assessment & Plan (09/25/2019 2:32 PM CDT): She did proceed with stem cell treatments for hand osteoarthritis for which she reports perceived clinical benefit. Assessment & Plan (04/24/2019 11:43 AM WALL TO WALL CARPET INSTALLER): Continue symptom management. She is contemplating stem-cell infusions for her hand OA. Reviewed with patient explaining again the paucity of controlled studies documenting benefits of same and the current [place] [employer] position. Assessment & Plan [...] CDT): Advised to see pain management if [facility] does not accept her as a patient. [...] controlled. Assessment & Plan (04/24/2019 11:32 AM WALL TO WALL CARPET INSTALLER): Psoriatic arthritis clinically stable on current med [...] unchanged. Assessment & Plan (03/06/2018 4:15 PM WALL TO WALL CARPET INSTALLER): Seronegative RA well controlled on current med [...] Ulises Mitchell MD and reviewed by the [employer] [place] [employer] Committee on Communications and MarketingThis patient fact sheet is provided for general education only. Individuals should consult a qualified health care provider for professional medical advice, diagnosis and treatment of a medical or health condition. 2017 [place] [employer] - See more at: [email or web address] Assessment & Plan (07/10/2017 3:47 PM CDT): See comments above. Consider independent ultrasound imaging [facility] pend review lab and x-rays if needed. Assessment & Plan (03/06/2017 2:55 PM WALL TO WALL CARPET INSTALLER): Patient disease activity is moderate. Complains of [...] Result History CT Chest W Contrast (Order #[id number]) on 07/01/2019 - Order Result History Report US Vein Duplex Lower Extremity Bilateral Complete Status: Final result Study Result Patient name: Marietta Baum Date of test: 07/01/2019 Hospital #: [id number] Location: [facility] Ref Physician(s): , MARGIE TAN MD Interpreted by: Vanessa Jimenez MD Tech: Evie oMhr RVT Type of Test: Lower Extremity Venous [...] and interpreted this study. Scans on Order [id number] CARDIOLOGY - ORDER - Scan on 07/01/2019: [...] Zetia Assessment & Plan (03/27/2017 10:54 AM WALL TO WALL CARPET INSTALLER): Low chol low fat diet Diet and [...] 04/02/2018 Assessment & Plan (04/02/2018 11:28 AM WALL TO WALL CARPET INSTALLER): Will check TSH and free T4 Will [...] taken. Assessment & Plan (03/27/2017 10:35 AM WALL TO WALL CARPET INSTALLER): Check TSH, free T4 Adjust dose of Levothyroxine accordingly . Instructions to patient on taking medication properly Knee pain 09/13/2016 10/17/2017 Overweight with body mass in dex (BMI) 25.0-29.9 08/30/2016 03/20/2022 Overview (09/15/2016): Adult BMI 29.0-29.9 kg/sq m Assessment & Plan (04/24/2019 11:27 AM WALL TO WALL CARPET INSTALLER): BMI satisfactory. A healthy diet and routine [...] management. Assessment & Plan (03/06/2018 4:16 PM WALL TO WALL CARPET INSTALLER): BMI satisfactory. A healthy diet and routine [...] 18 Senile nuclear cataract 05/21/200104/24 Overview (05/12/2022): Immunizations Immunization Administration Dates Next Due Influenza, Quad, Adjuvantate d, Intramuscular 12/29/2019 Influenza, Quadrivalent, Hig h Dose, Preservative Free, Intrr 03/03/2021 Influenza, Trivalent, High D ose, Split, Preservative Free, Intramuscular 01/14/2019,01/08/2018,01/21/2016 Influenza, Trivalent, IM (MDV) 01/01/2014 Influenza, Unspecified 12/29/2019,01/21/2016,02/2014 Pfizer SARS-CoV-2 Monovalent Vaccination (12+ Yrs) PURPLE 12/17/2020,07/13/2020,06/17/2020 Pneumococcal Conjugate PCV 13 01/23/2019, 016 Pneumococcal Polysaccharide PPV23 12/29/2019 Tdap 03/22/2020 ZOSTER Recombinant 11/07/2017,08/16/2017, 018 Social History Tobacco Use Types Packs/Day Years Used Date Smoking Tobacco: Former Cigarettes 0.1 1 1 1990 Smokeless Tobacco: Never Tobacco Cessation:Counseling Given: [...] AM CDT Legal Sex Female 1:54 AM WALL TO WALL CARPET INSTALLER Gender Identity Female 07/09/2018 7:53 AM CDT Sexual Orientation Straight 06/30/2018 8: 30 AM CDT Occupation Industry Job Start Date Job End Date Retired Not on file Not on file Not on file Last Filed Vital Signs Vital Sign Reading Time Taken Comments Blood Pressure 120/72 08/19/2024 3:45 PM CDT Pulse 78 08/19/2024 3:45 PM CDT Temperature 36.9 C (98.5 F) 04/27/2021 10:20 AM WALL TO WALL CARPET INSTALLER Respiratory Rate 20 02/27/2024 2:08 PM WALL TO WALL CARPET INSTALLER Oxygen Saturation 94% 08/19/2024 3:45 PM CDT Inhaled Oxygen Concentration - - Weight 87.5 kg (193 lb) 08/19/2024 3:45 PM CDT Height 162.6 cm (5' 4 ) 08/19/2024 3:45 PM CDT Body Mass Index 33.13 08/19/2024 3:45 PM CDT Plan of Treatment Not on file Medical Devices Implanted Type Area Service Center Manager Device Identifier Shelf Expiration Date Model / Serial / Lot [employer] [id number] Acrysof Iq Toric Stableforce 6mm 13mm 1 Piece Foldable Aspheric - [id number] - [id number] Implanted:Qty: 1 on 12/15/2019 by Gabriella Molina MD at [facility] Lens Left: Eye [employer] 06/03/2024 [id number] / [id number] / 0 Pacemaker Pacemaker Left: Chest [employer] [id number] Acrysof Iq Stableforce Ultrasert Tensionglide 6mm 13mm Aspheric - [id number] - [id number] Implanted:Qty: 1 on 01/15/2020 by Gabriella Molina MD at [facility] Right: Eye [employer] 09/23/2022 [id number] 0 / [id number] / [id number] Procedures Procedure Name Priority Date/Time Associated [...] CHECK - REMOTE Routine 06/13/2024 10:52 PM WALL TO WALL CARPET INSTALLER HEPATITIS PANEL, ACUTE Routine 07/01/2019 10:28 AM CDT Elevated liver function tests DEXA AXIAL SKELETON BONE DENSITY 1 OR MORE SITES Schedule Routine, Read Routine (OP Routine) 10/16/2018 10:43 AM CDT Hyperparathyroidi sm, primary from Last 3 Months or Most Recently Relevant to Health Maintenance Results * (ABNORMAL) CBC with auto differential (07/29/2024 10:00 AM CDT) WBC 6.5 3.8 - 10.8 Thousand/u L [...] ORDER GARY Final Result Performing Organization Address [facility]/ZIP Co de Phone Number [facility] [address] [place] [address] * Erythrocyte sedimentation rate (07/29/2024 10:00 AM CDT) Erythrocyte sedimentation rate 2 < OR = 30 mm/h [facility] Blood 07/29/2024 10:0 0 AM CDT 07/29/2024 10:01 AM CDT Micheline FINE LAB BLOOD ORDER GARY Final Result Performing Organization Address [facility] Co de Phone Number [facility] [address] [place] [address] * CRP (acute phase) (07/29/2024 10:00 AM CDT) C-RP <3.0 <8.0 mg/L [facility] Blood 07/29/2024 10:0 0 AM CDT 07/29/2024 10:01 AM CDT Micheline FINE LAB BLOOD ORDER GARY Final Result Performing Organization Address City/[facility] Co de Phone Number [facility] [address] [place] [address] * (ABNORMAL) Comprehensive metabolic panel (07/29/2024 10:00 [...] LAB BLOOD ORDER GARY Final Result [facility] [address] [place] [address] * DEVICE CHECK - REMOTE (06/13/2024 10:52 PM WALL TO WALL CARPET INSTALLER) Anatomical Region Laterality Modality Other 06/13/2024 10:5 2 PM WALL TO WALL CARPET INSTALLER Narrative 08/09/2024 4:40 PM CDT Interpretation Summary: Battery and Leads (BL) Normal parameters noted on battery and lead(s) --- 16 months (11 to 21 months) remaining longevity (implanted 2013). Lead impedance, sensing, and threshold trends stable and appropriate. No short V-V intervals. Presenting Rhythm ([place]) Atrial Pacing-Ventricular Sensing (AP-VS) --- AP/VS 77 [...] appropriate. No short V-V intervals. Presenting Rhythm ([place]) Atrial Pacing-Ventricular Sensing (AP-VS) --- AP/VS 77 bpm. Arrhythmic events (AE) No new arrhythmic events in monitoring period --- Since 03/03/24: No AHRor VHR episodes. Anticoagulation (AC) Patient prescribed Apixaban (Eliquis) Patient on anticoagulant therapy Transmission Information (TI) Device Summary Report Follow Up (FU) Patient's primary treating physician will be apprised of findings Wisam Flores MD PhD [facility] [place] OCEDURES Final Result * Hepatitis panel, acute (07/01/2019 10:28 AM CDT) Hep A IgM Nonreactive Nonreactive [facility] Comment: Interpretive Data If test is reported as GRAYZONE, new sample should be drawn in two weeks for testing. Current interpretive data was last revised on 2016. Testing performed by: [facility], [address] [place]., [address] Hep B core IgM Nonreactive Nonreactive [facility] Comment: Interpretive Data If test is reported as GRAYZONE, new sample should be drawn for testing. Current interpretive data was last revised on 2016. Testing performed by: [facility], [address] [place]., [address] Hep C Ab Nonreactive Nonreactive [facility] Comment: Interpretive Data Positive results should be confirmed by a molecular method. If positive, a second separately collected sample should be submitted for Hepatitis C Virus (HCV) RNA Detection and Quantitation by Real-Time Reverse Fur Grader-PCR (RT-PCR). Current interpretive data was last revised on 2016. Testing performed by: [facility], [address] [place]., [address] HepBsAg Nonreactive Nonreactive [facility] Comment:Testing performed by : [facility], [address] [place] [address]., [address] Blood specimen (specimen) 07/01/2019 10:28 AM CDT 07/01/2019 12:59 PM CDT us Fabrizio Cole MD LAB MICROBIOLOGY - GENERA L ORDERABLES Edited Result - Final [facility] [address] [facility] [place] [address] * Dexa Axial Skeleton Bone Density 1 or 2 Site (10/16/2018 10:43 AM CDT) Anatomical Region Laterality Modality Body N/A Other 10/16/2018 10:5 5 AM CDT Impressions 10/16/2018 10:56 AM CDT WITHIN THE RANGE OF NORMAL. COMMENT: [facility] [...] PPO HU[employer] CHOICE MEDICARE PPO Care Teams Release Specialist Relationship Specialty Start Date End Date Jose G Munroe MD [address] [place] [address] PCP - General Family Medicine 05/25/20 Radha Torres, LMT Massage Therapy 02/19/19 [place] [address] [place] [address] Physical Therapist Physical Therapy 03/27/19 Logan Arenas MD [address] [place] [address] Consulting Physician Rheumatology 01/30/22
--- OUTSIDE RECORDS SUMMARY | 2024-08-25 10:31 | XMS_ITS | Encounter Summary ---
Author Organization [facility] Address [address] [place] [address] Phone Care Team Providers Care Patient Insurance Clerk Name Role Phone Jose G Munroe MD Primary Care Provider Aliyah Urbina MD Unavailable Radha Torres LMT Unavailable Unavailable Radha Morales PT Unavailable [phone] Jose G Munroe MD Primary Care Provider Logan Arenas MD Unavailable [phone] Encounter Details Date Type Department Care Team (Late st Contact Info) Description 07/09/2017 Orders Only [facility] Provider, MD Stephane [address] [place] [address] Social History Tobacco Use Types Packs/Day Years Used Date Smoking Tobacco: Never Alcohol Use Standard Drinks/Week Comments Yes 0 (1 standard drink = 0.6 oz pur e alcohol) Comments Unknown Sex and Gender Information Value Date Recorded Sex Assigned at Female 06/30/2018 8:30 AM CDT Legal Sex Female 1:54 AM OBSTETRICIAN Gender Identity Female 07/09/2018 7:53 AM CDT Sexual Orientation Straight 06/30/2018 8: 30 AM CDT documented as of this encounter Plan of Treatment Not on file documented as of this encounter Procedures Procedure Name Priority Date/Time Associated Diagnosis Comments DISCHARGE LABORATORY CUMULATIVE REPORT 07/10/2017 12:00 AM CDT CARDIOLOGY REPORT 07/09/2017 documented in this encounter Results * DISCHARGE LABORATORY CUMULATIVE REPORT (07/10/2017 12:00 AM CDT) Narrative 07/10/2017 12:00 AM CDT Ordered by an unspecified provider. us Historical Provider LAB BLOOD ORDERABLES Sally l Result * CARDIOLOGY REPORT (07/09/2017) Anatomical Region Laterality Modality Other Narrative 07/09/2017 Ordered by an unspecified provider. Historical Provider [facility] PROCE DURES Final Result documented in this encounter Visit Diagnoses Not on filedocumented in this encounter Care Teams Patient Insurance Clerk Relationship Specialty Start Date End Date Jose G Munroe MD [address] [place] [address] PCP - General 07/21/16 05/24/20 Jose G Munroe MD [address] [place] [address] PCP - General Family Medicine 05/25/20 [place] [address] [facility] [address] [place] [address] Rheumatology 03/06/17 12/27/22 Radha Torres, LMJoselyn Massage Therapy 02/19/19 [place] [address] [place] [address] Physical Therapist Physical Therapy 03/27/19 Logan Arenas MD [address] [place] [address] Consulting Physician Rheumatology 01/30/22 documented as of this encounter
--- OUTSIDE RECORDS SUMMARY | 2024-08-25 10:31 | XMS_ITS | Clinical Summary ---
Author Organization [facility] Address [address] [place] [address] Phone Care Team Providers Care Civil Engineering Specialist Name Role Phone Jose G Munroe MD Primary Care Provider [phone] Allergies No known active allergies Medications levothyroxine 75 mcg tablet 01/21/2017 Active traZODone (DESYREL) 50 mg tablet 50 mg. 08/30/2016 Active sulfaSALAzine (AZULFIDINE EN-TAB) 500 mg Tablet, Delayed Release (E.C.) Take 2 tabs by mouth 2 times daily 03/06/2017 Active cholecalciferol, vitamin D3, 5,000 unit take one tab daily 03/11/2015 Active calcium as carbonate (OS-TESS) 1,250 mg (500 mg elemental) tablet 06/12/2016 Active Active Problems No known active problems Family History Medical History Relation Name Comments Diabetes Father Heart Disease Father Cancer Mother Relation Name Status Comments Father Mother Social History Tobacco Use Types Packs/Day Years Used Date Smoking Tobacco: Never Smokeless Tobacco: Never Alcohol Use Standard Drinks/Week Comments Yes 0 (1 standard drink = 0.6 oz pur e alcohol) Comments Unknown Sex and Gender Information Value Date Recorded Sex Assigned at Not on file Legal Sex Female 3:11 PM WINDSHIELD REPAIR TECHNICIAN Gender Identity Not on file Sexual Orientation Not on file Last Filed Vital Signs Vital Sign Reading Time Taken Comments Blood Pressure 124/72 04/09/2017 9:58 AM WINDSHIELD REPAIR TECHNICIAN Pulse 63 04/09/2017 9:58 AM WINDSHIELD REPAIR TECHNICIAN Temperature - - Respiratory Rate - - Oxygen Saturation 96% 04/09/2017 9:58 AM WINDSHIELD REPAIR TECHNICIAN Inhaled Oxygen Concentration - - Weight 75.3 kg (166 lb) 04/09/2017 9:58 AM WINDSHIELD REPAIR TECHNICIAN Height 167.6 cm (5' 6 ) 04/09/2017 9:58 AM WINDSHIELD REPAIR TECHNICIAN Body Mass Index 26.79 04/09/2017 9:58 AM WINDSHIELD REPAIR TECHNICIAN Plan of Treatment Health Maintenance Due Date Last Done Comments DTAP/TDAP/TD VACCINES (1 - Tdap) 1968 COLORECTAL SCREENING 1994 Colorectal Cancer Screening 1994 FIT-DNA Q 3 years 1994 FIT/FOBT Q 1 year 1994 Flex Sig/CT Colonography Q 5 years 1994 PNEUMOCOCCAL VACCINE 50+ YEA RS (1 of 1 - PCV) 1999 ZOSTER VACCINE (1 of 2) 1999 OSTEOPOROSIS SCREENING 10/22/2022 10/22/2017, 2015 INFLUENZA VACCINE (#1) 2023 RSV VACCINE (60+ or ) (1 - 1-dose 75+ series) 2024 Insurance [facility] MEDICARE RAILROAD Care Teams Civil Engineering Specialist Relationship Specialty Start Date End Date Jose G Munroe MD [address] [place] [address] PCP - General Family Practice 04/09/17
--- OUTSIDE RECORDS SUMMARY | 2024-08-25 10:31 | XMS_ITS | Encounter Summary ---
Author Organization [facility] Address [address] [place] [address] Phone Care Team Providers Care Head Bellhop Captain Name Role Phone Jose G Munroe MD Primary Care Provider Jose G Munroe MD Primary Care Provider Aliyah Urbina MD Unavailable Radha Torres LMJoselyn Unavailable Unavailable Radha Morales PT Unavailable [phone] Jose G Munroe MD Primary Care Provider Logan Arenas MD Unavailable [phone] Encounter Details Date Type Department Care Team (Late st Contact Info) Description 06/18/2014 Orders Only [facility] CAR CLINCONV Provider, MD Stephane [address] [place] [address] Social History Tobacco Use Types Packs/Day Years Used Date Smoking Tobacco: Never Assessed Comments Unknown Sex and Gender Information Value Date Recorded Sex Assigned at Female 06/30/2018 8:30 AM CDT Legal Sex Female 1:54 AM ACCOUNTANT ASSISTANT Gender Identity Female 07/09/2018 7:53 AM CDT Sexual Orientation Straight 06/30/2018 8: 30 AM CDT documented as of this encounter Plan of Treatment Not on file documented as of this encounter Procedures Procedure Name Priority Date/Time Associated Diagnosis Comments CARDIOLOGY REPORT 06/18/2014 documented in this encounter Results * CARDIOLOGY REPORT (06/18/2014) Anatomical Region Laterality Modality Other Narrative 06/18/2014 Ordered by an unspecified provider. us Historical Provider [facility] SHONA GOETZ Final Result documented in this encounter Visit Diagnoses Not on filedocumented in this encounter Care Teams Head Bellhop Captain Relationship Specialty Start Date End Date Jose G Munroe MD [address] [facility] [address] [place] [address] PCP - General 07/21/16 05/24/20 Jose G Munroe MD [address] [facility] [address] [place] [address] PCP - General 12/31/12 07/20/16 Jose G Munroe MD [address] [facility] [address] [place] [address] PCP - General Family Medicine 05/25/20 [place] [address] [facility] [address] [place] [address] Rheumatology 03/06/17 12/27/22 Radha Torres, LMT Massage Therapy 02/19/19 [place] [address] [place] [address] Physical Therapist Physical Therapy 03/27/19 Logan Arenas MD [address] [place] [address] Consulting Physician Rheumatology 01/30/22 documented as of this encounter
--- OUTSIDE RECORDS SUMMARY | 2024-08-25 10:31 | XMS_ITS | Encounter Summary ---
Author Organization [facility] Address [facility] [place] [address] Care Team Providers Care Computer Hardware Engineer Name Role Phone Jose G Munroe MD Primary Care Provider [phone] Encounter Details Date Type Department Care Team (Late st Contact Info) Description 05/23/2020 MyChart Message Enc [facility] Multispecialty Care - [address] [place] [id number] Itz Loya MD [address] [place] [address] [address] [place], [place] [id number] Test Results Social History Tobacco Use Types Packs/Day Years Used Date Smoking Tobacco: Former Cigarettes 0.3 3 1 977 - 1980 Smokeless Tobacco: Never Alcohol Use Standard Drinks/Week Comments Not Currently 0 (1 standard drink = 0.6 oz pur e alcohol) PHQ-2 Answer Date Recorded PHQ-2 Score 0 01/19/2020 Comments No Sex and Gender Information Value Date Recorded Sex Assigned at Not on file Legal Sex Female 11:19 AM CDT Gender Identity Female 07/18/2021 6:29 AM CDT Sexual Orientation Straight 07/18/2021 6: 29 AM CDT documented as of this encounter Plan of Treatment Not on file documented as of this encounter Visit Diagnoses Not on filedocumented in this encounter Care Teams Computer Hardware Engineer Relationship Specialty Start Date End Date Jose G Munroe MD [address] [facility] [address] [place] [address] PCP - General FAMILY PRACTICE 04/08/20 documented as of this encounter
--- OUTSIDE RECORDS SUMMARY | 2024-08-25 10:31 | XMS_ITS | Encounter Summary ---
Author Organization [facility] Address [address] [place] [address] Phone Care Team Providers Care Cap And Stud Machine Operator Name Role Phone Jose G Munroe MD Primary Care Provider Aliyah Urbina MD Unavailable Radha Torres LMJoselyn Unavailable Unavailable Radha Morales PT Unavailable [phone] Jose G Munroe MD Primary Care Provider Logan Arenas MD Unavailable [phone] Encounter Details Date Type Department Care Team (Late st Contact Info) Description 07/16/2019 Telephone [facility] Cardiology [address] [facility] Advanced Medicine [address]th [place] [address] [place] [address] Maverick Tan MD [address] [place] [address] Social History Tobacco Use Types Packs/Day Years Used Date Smoking Tobacco: Never Smokeless Tobacco: Never Alcohol Use Standard Drinks/Week Comments Yes 0 (1 standard drink = 0.6 oz pure alcohol) 2 glasses of wine per month; 2 cups of coffee daily PHQ-2 Answer Date Recorded PHQ-2 Score 0 12/14/2018 Comments Unknown Sex and Gender Information Value Date Recorded Sex Assigned at Female 06/30/2018 8:30 AM CDT Legal Sex Female 1:54 AM YARD GOODS SALESPERSON Gender Identity Female 07/09/2018 7:53 AM CDT Sexual Orientation Straight 06/30/2018 8: 30 AM CDT documented as of this encounter Plan of Treatment Not on file documented as of this encounter Visit Diagnoses Not on filedocumented in this encounter Care Teams Cap And Stud Machine Operator Relationship Specialty Start Date End Date Jose G Munroe MD [address] [place] [address] PCP - General 07/21/16 05/24/20 Jose G Munroe MD [address] [place] [address] PCP - General Family Medicine 05/25/20 [place] [address] [facility] [address] [place] [address] Rheumatology 03/06/17 12/27/22 Radha Torres, LMT Massage Therapy 02/19/19 [place] [address] [place] [address] Physical Therapist Physical Therapy 03/27/19 Logan Arenas MD [address] [place] [address] Consulting Physician Rheumatology 01/30/22 documented as of this encounter
--- OUTSIDE RECORDS SUMMARY | 2024-08-25 10:31 | XMS_ITS | Encounter Summary ---
Author Organization [facility] Address [address] [place] [address] Phone Care Team Providers Care Leaded Glass Installer Name Role Phone Jose G Munroe MD Primary Care Provider Aliyah Urbina MD Unavailable Radha Torres LMT Unavailable Unavailable Radha Morales PT Unavailable Jose G Munroe MD Primary Care Provider Logan Arenas MD Unavailable [phone] Encounter Details Date Type Department Care Team (Late st Contact Info) Description 09/14/2017 Orders Only [facility] ProviderStephane MD [address] [place] [address] Social History Tobacco Use Types Packs/Day Years Used Date Smoking Tobacco: Never Smokeless Tobacco: Never Alcohol Use Standard Drinks/Week Comments Yes 0 (1 standard drink = 0.6 oz pure alcohol) 2 glasses of wine per month; 2 cups of coffee daily Comments Unknown Sex and Gender Information Value Date Recorded Sex Assigned at Female 06/30/2018 8:30 AM CDT Legal Sex Female 1:54 AM MIRROR SPECIALIST Gender Identity Female 07/09/2018 7:53 AM CDT Sexual Orientation Straight 06/30/2018 8: 30 AM CDT documented as of this encounter Plan of Treatment Not on file documented as of this encounter Procedures Procedure Name Priority Date/Time Associated Diagnosis Comments DISCHARGE LABORATORY CUMULATIVE REPORT 09/14/2017 12:00 AM CDT documented in this encounter Results * DISCHARGE LABORATORY CUMULATIVE REPORT (09/14/2017 12:00 AM CDT) Narrative 09/14/2017 12:00 AM CDT Ordered by an unspecified provider. us Historical Provider LAB BLOOD ORDERABLES Sally l Result documented in this encounter Visit Diagnoses Not on filedocumented in this encounter Care Teams Leaded Glass Installer Relationship Specialty Start Date End Date Jose G Munroe MD [address] [place] [address] PCP - General 07/21/16 05/24/20 Jose G Munroe MD [address] [place] [address] PCP - General Family Medicine 05/25/20 [place] [address] [facility] [address] [place] [address] Rheumatology 03/06/17 12/27/22 Radha Torres, LMT Massage Therapy 02/19/19 [place] [address] [place] [address] Physical Therapist Physical Therapy 03/27/19 Logan Arenas MD [facility] [place] [address] Consulting Physician Rheumatology 01/30/22 documented as of this encounter
--- OUTSIDE RECORDS SUMMARY | 2024-08-25 10:31 | XMS_ITS | Encounter Summary ---
Author Organization [facility] Address [address] [place] [address] Phone Care Team Providers Care Needleworker Name Role Phone Jose G Munroe MD Primary Care Provider Jose G Munroe MD Primary Care Provider Aliyah Urbina MD Unavailable Radha Torres LMJoselyn Unavailable Unavailable Radha Morales PT Unavailable Jose G Munroe MD Primary Care Provider Logan Arenas MD Unavailable Encounter Details Date Type Department Care Team (Late st Contact Info) Description 06/21/2015 Orders Only [facility] CAR CLINCONV Provider, MD Stephane [address] [place] [address] Social History Tobacco Use Types Packs/Day Years Used Date Smoking Tobacco: Never Assessed Comments Unknown Sex and Gender Information Value Date Recorded Sex Assigned at Female 06/30/2018 8:30 AM CDT Legal Sex Female 1:54 AM ROOF TRUSS MACHINE TENDER Gender Identity Female 07/09/2018 7:53 AM CDT Sexual Orientation Straight 06/30/2018 8: 30 AM CDT documented as of this encounter Plan of Treatment Not on file documented as of this encounter Procedures Procedure Name Priority Date/Time Associated Diagnosis Comments CARDIOLOGY REPORT 06/21/2015 documented in this encounter Results * CARDIOLOGY REPORT (06/21/2015) Anatomical Region Laterality Modality Other Narrative 06/21/2015 Ordered by an unspecified provider. us Historical Provider [facility] SHONA GOETZ Final Result documented in this encounter Visit Diagnoses Not on filedocumented in this encounter Care Teams Needleworker Relationship Specialty Start Date End Date Jose G Munroe MD [address] [facility] [address] [place] [address] PCP - General 07/21/16 05/24/20 Jose G Munroe MD [address] [facility] [address] [place] [address] PCP - General 12/31/12 07/20/16 Jose G Munroe MD [address] [facility] [address] [place] [address] PCP - General Family Medicine 05/25/20 [place] [address] [facility] [address] [place] [address] Rheumatology 03/06/17 12/27/22 Radha Torres, LMT Massage Therapy 02/19/19 [place] [address] [place] [address] Physical Therapist Physical Therapy 03/27/19 Logan Arenas MD [address] [place] [address] Consulting Physician Rheumatology 01/30/22 documented as of this encounter
--- OUTSIDE RECORDS SUMMARY | 2024-08-25 10:31 | XMS_ITS | Encounter Summary ---
Author Organization [facility] Address [address] [place] [address] Phone Care Team Providers Care Campground Attendant Name Role Phone Jose G Munroe MD Primary Care Provider Aliyah Urbina MD Unavailable Radha Torres LMT Unavailable Unavailable Radha Morales PT Unavailable Jose G Munroe MD Primary Care Provider Logan Arenas MD Unavailable [phone] Encounter Details Date Type Department Care Team (Late st Contact Info) Description 06/05/2017 Orders Only [facility] CAR CLINCONV Provider, MD Stephane [address] [place] [address] Social History Tobacco Use Types Packs/Day Years Used Date Smoking Tobacco: Never Alcohol Use Standard Drinks/Week Comments Yes 0 (1 standard drink = 0.6 oz pur e alcohol) Comments Unknown Sex and Gender Information Value Date Recorded Sex Assigned at Female 06/30/2018 8:30 AM CDT Legal Sex Female 1:54 AM PRESS OPERATOR PRINTING Gender Identity Female 07/09/2018 7:53 AM CDT Sexual Orientation Straight 06/30/2018 8: 30 AM CDT documented as of this encounter Plan of Treatment Not on file documented as of this encounter Procedures Procedure Name Priority Date/Time Associated Diagnosis Comments CARDIOLOGY REPORT 06/05/2017 CARDIOLOGY REPORT 06/05/2017 documented in this encounter Results * CARDIOLOGY REPORT (06/05/2017) Anatomical Region Laterality Modality Other Narrative 06/05/2017 Ordered by an unspecified provider. Historical Provider [facility] PROCE DURES Final Result * CARDIOLOGY REPORT (06/05/2017) Anatomical Region Laterality Modality Other Narrative 06/05/2017 Ordered by an unspecified provider. Historical Provider [facility] PROCE DURES Final Result documented in this encounter Visit Diagnoses Not on filedocumented in this encounter Care Teams Campground Attendant Relationship Specialty Start Date End Date Jose G Munroe MD [address] [facility] [address] [place] [address] PCP - General 07/21/16 05/24/20 Jose G Munroe MD [address] [facility] [address] [place] [address] PCP - General Family Medicine 05/25/20 [place] [address] [facility] [address] [place] [address] Rheumatology 03/06/17 12/27/22 Radha Torres, HAMZAH Massage Therapy 02/19/19 [place] [address] [place] [address] Physical Therapist Physical Therapy 03/27/19 Logan Arenas MD [address] [place] [address] Consulting Physician Rheumatology 01/30/22 documented as of this encounter
== END 2024-08-25 09:48 | disposition home or self-care (01) ==
LOC: ANHIMG 09:49
PROVIDERS: PCP Family Medicine; Visit Provider Family Medicine
DX: Z12.31 Encounter for screening mammogram for malignant neoplasm of breast (principal)
CPT/HCPCS: 77063; 77067

== ENCOUNTER 2025-01-16 20:44 | Emergency (ER) | payer MEDICARE, SELFPAY ==
--- NOTE | ~2025-01-16 | XR_ITS ---
XR foot RT min 3V 01/16/2025 21:04 Indication: Right foot pain after fall Procedure: 3 views right foot Comparison: 03/07/2022 Findings: Osteopenia. Lisfranc joint intact. 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 There is a nondisplaced fracture proximal aspect of the fifth metatarsal. There is adjacent soft tissue swelling. There are degenerative calcaneal enthesophyte at the plantar surface. Impression: 1: Nondisplaced transverse fracture proximal aspect of the fifth metatarsal. Reviewed, dictated and finalized at location O. Impression: 1: Nondisplaced transverse fracture proximal aspect of the fifth metatarsal.
[2025-01-16 20:47] VITALS: BP 128/75; PULSE 80; RESP 20; TEMP 36.7; O2SAT 95
[2025-01-16] MEDS: HYDROcodone/acetaminophen (*CRX) 5-325 MG TABLET 1 TAB PO (23:31)
--- NOTE | 2025-01-17 | ED.LOWEXIN ---
HPI - Extremity Injury (Lower) General Chief Complaint: Extremity Injury, Lower Stated Complaint: fall, foot pain Time Seen by Provider: 01/16/25 22:47 Source: patient Mode of arrival: ambulatory Limitations: no limitations History of Present Illness HPI Narrative: Patient is a 74-year-old female who presents the ED with report of right foot pain. Patient reports she tripped while wearing dress shoes and rolled her right foot, causing her to fall. Complains pain to her right lateral foot. Unable to ambulate. Denies any other injuries. Denies head injury or LOC. Denies numbness. Related Data Home Medications ?Medication ?Instructions ?Recorded ?Confirmed ?Last Taken ?Type apixaban 5 mg tablet (Eliquis) 5 mg PO BID 12/12/19 06/24/24 Unknown History levothyroxine 75 mcg tablet 75 mcg PO DAILY 12/12/19 06/24/24 Unknown History rosuvastatin 20 mg tablet 20 mg PO DAILY 04/19/22 06/24/24 Unknown History adalimumab 40 mg/0.8 mL See Rx Instructions subcut .COMPLEX 06/24/24 06/24/24 Unknown History subcutaneous syringe kit (Humira) hydroxychloroquine 200 mg tablet 200 mg PO BID 06/24/24 06/24/24 Unknown History Allergies Allergy/AdvReac Type Severity Reaction Status Date / Time adhesive Allergy Unknown Rash Verified 01/16/25 21:00 atorvastatin Allergy Unknown muscle Verified 01/16/25 21:00 cramps latex Allergy Unknown Rash Verified 01/16/25 21:00 Review of Systems Review of Systems: All systems reviewed & are unremarkable except as noted in HPI. All systems reviewed & are unremarkable except as noted in HPI and below PMFSH Past Medical History Medical History Diabetes HLD (hyperlipidemia) Overweight Overweight IFG (impaired fasting glucose) Rheumatoid arthritis Hypothyroidism History of pulmonary embolism Psoriatic arthritis Surgical History Surgical History H/O total thyroidectomy 11/28/24 History of delivery History of cholecystectomy History of tonsillectomy Status cardiac pacemaker Family History Family History Father Heart disease Diabetes mellitus Mother Lymphoma Sibling Cerebrovascular accident Heart disease Father Family history of elevated blood lipids, Onset Age: 72 Family history of diabetes mellitus in first degree relative, Onset Age: 72 Family history of coronary artery disease Hypertension, Onset Age: 72 Patient's father is Sibling Cerebrovascular accident Family history of coronary artery disease Hypertension Family history of elevated blood lipids Family history of diabetes mellitus in first degree relative Mother Family history of lymphoma Other Family history of arthritis Family history of osteoporosis Family history of rheumatoid arthritis Social History Social History Social History: Years smoked: 2 Smoking status: Former smoker Tobacco type: cigarettes Second hand tobacco smoke exposure: No Smoking end date: 04/23/89 Alcohol intake: former Substance use: never Substance use type: does not use Do You Feel Safe in your Home?: Yes Lack of Transportation: No Lack of Food: Never True Current Housing: I Have Housing Concerned About Future Housing: No Difficulty Paying Gas/Electric Bills: No Difficulty Paying for Meds: No Currently Unemployed: No Education: Don't Know Difficulty w/ Childcare or Family Care: No Living arrangements: with family Occupation/Education: retired Gender identity (if verbalized by the patient): Female Sexual Orientation (if Verbalized by the Patient): Straight or Heterosexual Exam Narrative: GENERAL: Well appearing, well-nourished, non-toxic, in no acute distress. HEAD: Normocephalic, atraumatic. RESPIRATORY: Airway patent, respirations nonlabored. Clear to auscultation bilaterally, no rales, rhonchi, wheezing. CARDIOVASCULAR: Regular rate and rhythm. Pedal pulses are intact and easily palpable. MUSCULOSKELETAL: Moves all extremities. Moderate swelling/bruising to R lateral dorsal mid foot with focal TTP. No significant tenderness over R medial/lateral malleoli SKIN: Warm, dry, normal color. NEURO: A&O X3. Speech clear. No ataxic movements. PSYCHIATRIC: Appropriate mood and affect. Normal interaction. Course Vital Signs Vital signs: Vital Signs Temperature 98.0 F 01/16/25 20:47 Pulse Rate 80 01/16/25 20:47 Respiratory Rate 20 01/16/25 20:47 Blood Pressure 128/75 01/16/25 20:47 Pulse Oximetry 95 01/16/25 20:47 Oxygen Delivery Room Air 01/16/25 20:47 Temperature 98.0 F 01/16/25 20:47 Pulse Rate 80 01/16/25 20:47 Respiratory Rate 20 01/16/25 20:47 Blood Pressure 128/75 01/16/25 20:47 Pulse Oximetry 95 01/16/25 20:47 Oxygen Delivery Room Air 01/16/25 20:47 MDM - Extremity Injury (Lower) MDM Narrative Medical decision making narrative: Patient?s injury is consistent with musculoskeletal etiology. No signs of neurologic or vascular compromise on physical examination. Compartments are soft without signs of compartment syndrome. XR of right foot showing proximal 5th metatarsal fracture. Pain is consistent with exam and injury. Patient placed in short leg posterior splint. Advised strict nonweightbearing. Advised will need close follow-up with orthopedics for further evaluation. Given crutches. Given strict return precautions. Pain medications sent to pharmacy. Patient in agreement with plan. Discharged in stable condition Medical Records Attestation: I reviewed the patient's medical records. Imaging Data Attestation: I personally reviewed and interpreted this imaging study as follows: Radiologist's impression: ITS Impressions Foot X-Ray 01/16/25 21:19 Impression: 1: Nondisplaced transverse fracture proximal aspect of the fifth metatarsal. Discharge Plan Discharge Clinical Impression: Fall from ground level Fracture of fifth metatarsal bone of right foot Qualifiers: Encounter type: initial encounter Fracture type: closed Fracture alignment: nondisplaced Qualified Code(s): S92.354A - Nondisplaced fracture of fifth metatarsal bone, right foot, initial encounter for closed fracture Patient Disposition: Home Condition: Stable Instructions: Antibiotic Form, Foot Fracture in Adults (ED), Splint Care (ED), P.R.I.C.E. Treatment (ED) Additional Instructions: Follow-up with orthopedics for further evaluation. Call office on Sunday morning to make follow-up appointment. Wear splint until seen by orthopedics. Recommend frequent elevation of leg, frequent icing to foot. Recommend Tylenol as needed for pain. [place] as needed for more severe pain. Return to the ED if you experience worsening pain or swelling, recurrent fall or injury, numbness, or any other symptoms of concern. Patient Language: Stateless Prescriptions: New hydrocodone-acetaminophen 5-325 mg tablet 1 tablet PO Q6H PRN (Reason: pain) Qty: 20 0RF No Action rosuvastatin 20 mg tablet 20 mg PO DAILY hydroxychloroquine 200 mg tablet 200 mg PO BID Humira 40 mg/0.8 mL syringe kit See Rx Instructions subcut .COMPLEX Rx Instructions: inject one - 40 mg/0.8 mL syringe every 2 weeks subcut Eliquis 5 mg tablet 5 mg PO BID levothyroxine 75 mcg tablet 75 mcg PO DAILY meloxicam 7.5 mg tablet 7.5 mg PO DAILY Qty: 30 5RF Follow-up/Referrals: Jose G Munroe MD [Primary Care Provider, Family Practice] Jaime Strickland MD [Physician, Orthopedics] Referral Note: ORTHOPEDICS Time of Disposition: 00:03
== END 2025-01-17 00:48 | disposition home or self-care (01) ==
PROVIDERS: Emergency Provider Physician Assistant; PCP Family Medicine
DX: S92.354A Nondisplaced fracture of fifth metatarsal bone, right foot, initial encounter for closed fracture (principal); E11.9 Type 2 diabetes mellitus without complications; E78.5 Hyperlipidemia, unspecified; M06.9 Rheumatoid arthritis, unspecified; E03.9 Hypothyroidism, unspecified; Z86.711 Personal history of pulmonary embolism; W01.0XXA Fall on same level from slipping, tripping and stumbling without subsequent striking against object, initial encounter
CPT/HCPCS: 73630; 99283; A9270